=== PATIENT | female | born 1940 | race Caucasian/White ===

== ENCOUNTER 2017-05-18 11:43 | Inpatient (IN) | payer OTHER ==
[2017-05-18 11:59] VITALS: BMI 45.3
--- NOTE | 2017-05-18 13:04 | PDOC ---
History of Present Illness - General Chief Complaint: Blood Transfusion Stated Complaint: LAB VARIANCE (PCP SENT) Time Seen by Provider: 05/18/17 11:50 History Source: Patient Exam Limitations: No Limitations - History of Present Illness Initial Comments: 05/18/17 12:30 77-year-old female sent in from Dr. Arcos's office for evaluation of dyspnea on exertion along with continual low H&H over the past few weeks. Patient does have history of CHF and denies any chest pain, palpitations, fever, chills, bloody stool, bloody urine, or bruising. Patient also denies weight loss, change in appetite, change in medications, history of anemia, change in urine pattern, change in bowel pattern. Timing/Duration: reports: getting worse Severity: reports: moderate Modifying Factors: improves with: activity Associated Symptoms: reports: shortness of breath Past History - Past Medical History Allergies/Adverse Reactions: Allergies Allergy/AdvReac Type Severity Reaction Status Date / Time No Known Allergies Allergy Verified 05/18/17 12:00 Home Medications: Ambulatory Orders Amlodipine/Atorvastatin [Amlodipine-Atorvast 2.5-10 mg] 1 each PO BID 11/02/14 Aspirin [ASA -] 81 mg PO DAILY 11/02/14 Atorvastatin Ca [Lipitor] 20 mg PO HS 11/02/14 Carvedilol [Coreg -] 25 mg PO DAILY 11/02/14 Cholecalciferol (Vitamin D3) [Vitamin D3 -] 2,000 unit PO DAILY 11/02/14 Furosemide [Lasix -] 40 mg PO DAILY 11/02/14 Glipizide [Glipizide ER] 10 mg PO DAILY 11/02/14 Isosorbide Mononitrate [Imdur] 60 mg PO DAILY 11/02/14 Saxagliptin HCl/Metformin HCl [Kombiglyze Xr 2.5-1,000 mg Tab] 1 tab PO HS 11/02 Albuterol 2.5/Ipratropium 0.5 [Duoneb -] 1 neb NEB QIDR #0 vial 11/10/14 Alprazolam [Xanax] 0.5 mg PO Q6H PRN #0 tablet 11/10/14 Amlodipine Besylate [Norvasc -] 2.5 mg PO DAILY #0 tablet 11/10/14 Ramipril [Altace] 2.5 mg PO DAILY #0 capsule 11/10/14 Ranolazine [Ranexa -] 500 mg PO BID #0 tab 11/10/14 Sitagliptin Phosphate [Januvia -] 50 mg PO ACDIN #0 tablet 11/10/14 Acetaminophen [Tylenol] 650 mg PO DAILY PRN 05/18/17 Saxagliptin HCl/Metformin HCl [Kombiglyze Xr 2.5-1,000 mg Tab] 1 tab PO DAILY Asthma: Yes Cardiac Disorders: Yes ([place] X2, CAD) COPD: Yes Diabetes: Yes - Surgical History Cardiac Surgery: Yes ([facility]) Cholecystectomy: Yes - Psycho/Social/Smoking Cessation Hx Anxiety: Yes Suicidal Ideation: No Smoking History: Former smoker Have you smoked in the past 12 months: No If you are a former smoker, when did you quit?: 25 YEARS AGO Information on smoking cessation initiated: No Hx Alcohol Use: No Drug/Substance Use Hx: No Substance Use Type: None Patient Lives Alone: No Lives with/in: children Review of Systems - Review of Systems Constitutional: Yes: Weakness (mild). No: Loss of Appetite HEENTM: No: Symptoms Reported Respiratory: Yes: SOB with Exertion Cardiac (ROS): Yes: Edema ABD/GI: No: Symptoms Reported : No: Symptoms Reported Musculoskeletal: No: Symptoms Reported Integumentary: No: Symptoms Reported Neurological: Yes: Weakness (mild) Endocrine: No: Symptoms Reported Hematologic/Lymphatic: Yes: Anemia *Physical Exam - Vital Signs Last Vital Signs Temp Pulse Resp BP Pulse Ox 98 F 84 20 110/41 93 L 05/18/17 11:57 05/18/17 11:57 05/18/17 11:57 05/18/17 11:57 05/18/17 11:57 - Physical Exam General Appearance: Yes: Nourished, Appropriately Dressed. No: Apparent Distress HEENT: positive: EOMI, TREY, Pale Conjunctivae Neck: positive: Supple Respiratory/Chest: positive: Lungs Clear, Normal Breath Sounds. negative: Respiratory Distress, Accessory Muscle Use Cardiovascular: positive: Regular Rhythm, Regular Rate. negative: Murmur Gastrointestinal/Abdominal: positive: Soft. negative: Tenderness Rectal Exam: positive: heme negative stool Extremity: positive: Normal Capillary Refill, Pedal Edema (3+ pititng to BLE) Integumentary: positive: Normal Color, Dry, Warm Neurologic: positive: Motor Strength 5/5 (ambulatory) Heart Score/ECG Review - ECG Intrepretation Rhythm: Regular Rhythm (rate 76 with left axis deviation and left bundle branch block) ED Treatment Course - LABORATORY CBC & Chemistry Diagram: 05/18/17 12:52 05/18/17 12:52 - RADIOLOGY Radiology Studies Ordered: Category Date Time Status CHEST X-RAY PORTABLE* [RAD] Stat Radiology 05/18/17 12:51 Ordered Medical Decision Making - Medical Decision Making 05/18/17 12:35 Patient with low hematocrit and hemoglobin along with dyspnea on exertion. Patient was sent in by Dr. Arcos for admission and for evaluation of symptoms above. Patient ordered for type and screen, CBC, comp, urinalysis, stool for guaiac testing, cardiac monitoring, IV access and pulse oximetry. Patient will be admitted to [facility] under Dr. Arcos. 05/18/17 15:45 Laboratory Tests 05/18/17 05/18/17 05/18/17 12:52 12:52 12:52 WBC 11.2 H Hgb 7.0 L D Hct 24.1 L D MCH 19.5 L MCHC 29.2 L Plt Count 280 Neutrophils % 78.6 INR 1.09 Anion Gap BUN Creatinine Random Glucose Calcium Magnesium Total Bilirubin AST ALT B-Natriuretic Peptide Urine Ketones Negative Urine Blood Negative Urine Nitrite Negative Ur Leukocyte Esterase 2+ H Urine WBC 1 Stool Occult Blood Negative Blood Type 05/18/17 05/18/17 12:52 14:35 WBC Hgb Hct MCH MCHC Plt Count Neutrophils % INR Anion Gap 7 L BUN 26 H Creatinine 1.2 H Random Glucose 151 H D Calcium 8.7 Magnesium 2.4 D Total Bilirubin 0.4 D AST 16 ALT 13 D B-Natriuretic Peptide 122.95 Urine Ketones Urine Blood Urine Nitrite Ur Leukocyte Esterase Urine WBC Stool Occult Blood Blood Type O POSITIVE 05/18/17 15:45 Patient ordered for 1 unit of blood. Patient evaluate by Dr. Arcos. Patient admitted to [facility]. *DC/Admit/Observation/Transfer Diagnosis at time of Disposition: Dyspnea on exertion, Low hemoglobin - Discharge Dispostion Admit: Yes
[2017-05-18 13:09] LABS: MCHC 29.2 g/dl (32.0-36.0); MEAN CELL VOLUME 66.8 fl (80-96); MEAN PLT VOLUME 7.6 fl (7.5-11.1); PLATELET COUNT 280 K/MM3 (134-434); RDW 20.8 % (11.6-15.6); WHITE BLOOD COUNT 11.2 K/mm3 (4.0-10.0)
[2017-05-18 13:12] LABS: STOOL FOR OCCULT BLOOD NEGATIVE (NEGATIVE)
[2017-05-18 13:15] LABS: MCH 19.5 pg (25.7-33.7)
--- NOTE | 2017-05-18 13:16 | HP ---
Admitting History and Physical - Primary Care Physician PCP: Alexei Palomino - Admission Chief Complaint: SOB/WEAKNESS History of Present Illness: 77 WHITE FEMALE, GENERALLY NONCOMPLIANT WITH SUGGESTIONS FOR MAMMO/ COLONOSCOPIES ETC WAS SEEN IN OFFICE FOR SOB. LABS REVEALED AN IRON DEFICIENCY ANEMIA WITH HGB 7.3 PATIENT WAS EXTREMELY SOB AND HAD LOWER EXT EDEMA/ ORTHOPNEA AND DENIED CP,PALPS,FEVER,MELENA,BRPR,HEMATURIA AND SYNCOPE. 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 No: O2 Dependent Gastrointestinal: No: Ascites Hepatobiliary: No: Cirrhosis Renal/: No: Renal Failure Reproductive: Yes: Postmenopausal Heme/Onc: Yes: Anemia Infectious Disease: No: AIDS Psych: No: Addictions - Past Surgical History Past Surgical History: Yes: Cholecystectomy, Hysterectomy - Smoking History Smoking history: Former smoker Have you smoked in the past 12 months: No If you are a former smoker, when did you quit?: 25 YEARS AGO - Alcohol/Substance Use Hx Alcohol Use: No - Social History Usual Living Arrangement: Yes: With Spouse ADL: Family Assistance History of Recent Travel: No Home Medications - Allergies Allergies/Adverse Reactions: Allergies Allergy/AdvReac Type Severity Reaction Status Date / Time No Known Allergies Allergy Verified 05/18/17 12:00 - Home Medications Home Medications: Ambulatory Orders Amlodipine/Atorvastatin [Amlodipine-Atorvast 2.5-10 mg] 1 each PO BID 11/02/14 Aspirin [ASA -] 81 mg PO DAILY 11/02/14 Atorvastatin Ca [Lipitor] 20 mg PO HS 11/02/14 Carvedilol [Coreg -] 25 mg PO DAILY 11/02/14 Cholecalciferol (Vitamin D3) [Vitamin D3 -] 1,000 unit PO DAILY 11/02/14 Furosemide [Lasix -] 40 mg PO DAILY 11/02/14 Glipizide [Glipizide ER] 10 mg PO DAILY 11/02/14 Isosorbide Mononitrate [Imdur] 60 mg PO DAILY 11/02/14 Saxagliptin HCl/Metformin HCl [Kombiglyze Xr 2.5-1,000 mg Tab] 1 tab PO HS 11/02 Albuterol 2.5/Ipratropium 0.5 [Duoneb -] 1 neb NEB QIDR #0 vial 11/10/14 Alprazolam [Xanax] 0.5 mg PO Q6H PRN #0 tablet 11/10/14 Amlodipine Besylate [Norvasc -] 2.5 mg PO DAILY #0 tablet 11/10/14 Ramipril [Altace] 2.5 mg PO DAILY #0 capsule 11/10/14 Ranolazine [Ranexa -] 500 mg PO BID #0 tab 11/10/14 Sitagliptin Phosphate [Januvia -] 50 mg PO ACDIN #0 tablet 11/10/14 Family Disease History - Family Disease History Family History: Unremarkable Review of Systems - Review of Systems Constitutional: denies: Fever Eyes: denies: Blurred Vision HENT: denies: Difficult Swallowing Neck: denies: Decreased ROM Cardiovascular: denies: Chest Pain Respiratory: reports: Exercise Intolerance, SOB on Exertion. denies: Hemoptysis , Wheezing Gastrointestinal: denies: Abdominal Pain, Melena, Nausea Genitourinary: denies: Burning Breasts: reports: No Symptoms Reported Musculoskeletal: reports: No Symptoms Integumentary: reports: No Symptoms Neurological: reports: No Symptoms Endocrine: reports: No Symptoms Physical Examination Vital Signs: Vital Signs Temperature 98 F 05/18/17 11:57 Pulse Rate 84 05/18/17 11:57 Respiratory Rate 20 05/18/17 11:57 Blood Pressure 110/41 05/18/17 11:57 O2 Sat by Pulse Oximetry (%) 93 L 05/18/17 11:57 Constitutional: Yes: Calm Eyes: Yes: EOM Intact HENT: Yes: Normocephalic Neck: Yes: Trachea Midline Cardiovascular: Yes: Regular Rate and Rhythm, S1, S2 Respiratory: Yes: CTA Bilaterally Gastrointestinal: Yes: Normal Bowel Sounds, Abdomen, Obese Musculoskeletal: Yes: Back Pain Edema: Yes Edema: LLE: 2+, RLE: 2+ Imaging - Results Chest X-ray: Pending Problem List - Problems (1) Dyspnea on exertion Code(s): R06.09 - OTHER FORMS OF DYSPNEA (2) Low hemoglobin Code(s): D64.9 - ANEMIA, UNSPECIFIED (3) Arteriosclerotic heart disease (ASHD) Code(s): I25.10 - ATHSCL HEART DISEASE OF [place] CORONARY ARTERY W/O ANG PCTRS (4) CHF (congestive heart failure) Code(s): I50.9 - HEART FAILURE, UNSPECIFIED (5) Stented coronary artery Code(s): Z95.5 - PRESENCE OF CORONARY ANGIOPLASTY IMPLANT AND GRAFT (6) Diabetes mellitus Code(s): E11.9 - TYPE 2 DIABETES MELLITUS WITHOUT COMPLICATIONS (7) COPD (chronic obstructive pulmonary disease) Code(s): J44.9 - CHRONIC OBSTRUCTIVE PULMONARY DISEASE, UNSPECIFIED Assessment/Plan LIKELY ANEMIA DUE TO GI BLOOD LOSS H/O CAD S/P PCI STENT LVD/CHF DM HPL M. OBESITY LUNG NODULES NONCOMPLIANCE STOOL GUIAC TRANSFUSE PRBC TO MAINTAIN HGB 8 OR ABOVE CARDIO/GI EVAL WILL LIKELY NEED EGD/COLONOSCOPY CONTINUE GLYCEMIC CONTROL/CVS GELY PALOMINO MD
[2017-05-18 13:21] LABS: INR 1.09 (0.82-1.09)
[2017-05-18 13:28] LABS: URINE APPEARANCE CLEAR; URINE BILIRUBIN NEGATIVE (NEGATIVE); URINE BLOOD NEGATIVE (NEGATIVE); URINE COLOR COLORLESS; URINE GLUCOSE (UA) NEGATIVE (NEGATIVE); URINE KETONE NEGATIVE (NEGATIVE); URINE NITRITE NEGATIVE (NEGATIVE); URINE PROTEIN NEGATIVE (NEGATIVE); URINE UROBILINOGEN NEGATIVE mg/dL (0.2-1.0)
[2017-05-18] MEDS ORDERED: glipiZIDE-XL 10 MG TAB.ER.24 (FP) PO ONE (13:30)
[2017-05-18] MEDS ORDERED: CARVEDILOL 25 MG TABLET (FP) PO SCH (13:30)
[2017-05-18] MEDS ORDERED: ISOSORBIDE MONONITRATE 60 MG TAB.SR.24H (FP) PO SCH (13:30)
[2017-05-18] MEDS ORDERED: FUROSEMIDE 40 MG TABLET (FP) PO SCH (13:30)
[2017-05-18 13:31] LABS: ALBUMIN 3.3 g/dl (3.4-5.0); ANION GAP 7 (8-16); BILIRUBIN,TOTAL 0.4 mg/dL (0.2-1.0); CALCIUM 8.7 mg/dL (8.5-10.1); CO2 29 mmol/L (21-32); CREATININE 1.2 mg/dL (0.55-1.02); GLUCOSE,RANDOM 151 mg/dL (74-106); MAGNESIUM 2.4 mg/dL (1.8-2.4); SGOT/AST 16 U/L (15-37); SGPT/ALT 13 U/L (12-78); TOT PROT 6.4 g/dl (6.4-8.2)
[2017-05-18 13:34] LABS: ALK PHOS 108 U/L (45-117); URINE LEUK ESTERASE 2+ (NEGATIVE)
[2017-05-18 13:38] LABS: URINE BACTERIA RARE /hpf (NONE SEEN); URINE HYALINE CAST 12 /lpf; URINE MUCUS RARE; URINE RBC <1 /hpf (0-3); URINE WBC 1 /hpf (3-5)
[2017-05-18 13:52] LABS: NEUTROPHILS 78.6 % (42.8-82.8)
[2017-05-18 13:53] LABS: ANISOCYTOSIS 2+; HYPOCHROMIA 2+; MICROCYTOSIS 1+; PLATELET ESTIMATE ADEQUATE (NORMAL); POIKILOCYTOSIS 1+; POLYCHROMASIA 1+; TARGET CELLS 1+
[2017-05-18 13:54] LABS: OVALOCYTES 1+; STOMATOCYTE F
[2017-05-18] MEDS: glipiZIDE-XL 10 MG TAB.ER.24 (FP) PO SCH (14:49)
--- NOTE | 2017-05-18 15:40 | CON.GI ---
Consult Consult Specialty:: GI Referred by:: Dr. Arcos Reason for Consultation:: Anemia - History of Present Illness Chief Complaint: I have been short of breath and my legs are swelling History of Present Illness: 77F admitted through [facility] for evaluation SOB and worsening LE swelling. She states that this has been going on for about a month, worse over the last few days. In ER her Hgb was noted to be 7 and FOBT was negative. In review of [facility], Hgb was 11.9 11/05. It is unclear if she had had outpatient lab work more recent than that reflecting anemia. She denies chest pain, nausea, vomiting, dysphagia, odynophagia, change in bowel habits, rectal bleeding, melena. She has some left sided flank pain from time to time. She also describes chronic constipation. She has never had an upper endoscopy or colonoscopy and is hesitant to have them performed. There is no family history of colorectal cancer or other GI malignancy. She takes a 325mg aspirin as opposed to 81mg daily by her own doing "because it is good for strokes". She otherwise denies chronic NSAID use. 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 : [facility] History of Recent Travel: No Home Medications - Allergies Allergies/Adverse Reactions: Allergies Allergy/AdvReac Type Severity Reaction Status Date / Time No Known Allergies Allergy Verified 05/18/17 12:00 - Home Medications Home Medications: Ambulatory Orders Amlodipine/Atorvastatin [Amlodipine-Atorvast 2.5-10 mg] 1 each PO BID 11/02/14 Aspirin [ASA -] 81 mg PO DAILY 11/02/14 Atorvastatin Ca [Lipitor] 20 mg PO HS 11/02/14 Carvedilol [Coreg -] 25 mg PO DAILY 11/02/14 Cholecalciferol (Vitamin D3) [Vitamin D3 -] 2,000 unit PO DAILY 11/02/14 Furosemide [Lasix -] 40 mg PO DAILY 11/02/14 Glipizide [Glipizide ER] 10 mg PO DAILY 11/02/14 Isosorbide Mononitrate [Imdur] 60 mg PO DAILY 11/02/14 Saxagliptin HCl/Metformin HCl [Kombiglyze Xr 2.5-1,000 mg Tab] 1 tab PO HS 11/02 Albuterol 2.5/Ipratropium 0.5 [Duoneb -] 1 neb NEB QIDR #0 vial 11/10/14 Alprazolam [Xanax] 0.5 mg PO Q6H PRN #0 tablet 11/10/14 Amlodipine Besylate [Norvasc -] 2.5 mg PO DAILY #0 tablet 11/10/14 Ramipril [Altace] 2.5 mg PO DAILY #0 capsule 11/10/14 Ranolazine [Ranexa -] 500 mg PO BID #0 tab 11/10/14 Sitagliptin Phosphate [Januvia -] 50 mg PO ACDIN #0 tablet 11/10/14 Acetaminophen [Tylenol] 650 mg PO DAILY PRN 05/18/17 Saxagliptin HCl/Metformin HCl [Kombiglyze Xr 2.5-1,000 mg Tab] 1 tab PO DAILY Family Disease History - Family Disease History Family Disease History: Other: Father ( 57: blood clot), Mother ( 83: internal bleeding), Brother (1 47: DM II / [place], 1 64: CHF, 1 76 metastatic prostate cancer) Other Family History: 4 healthy children. No family history of colorectal cancer Review of Systems - Review of Systems Constitutional: denies: Fever, Unintentional Wgt. Loss Cardiovascular: reports: Edema, Shortness of Breath (chronic, worse of late, worse when laying down), Other (orthopnea). denies: Chest Pain, Palpitations Gastrointestinal: reports: Constipation. denies: Abdominal Pain, Bloating, Diarrhea, Dysphagia, Indigestion, Melena, Nausea, Rectal Bleeding, Vomiting, Vomiting Blood Genitourinary: denies: Discharge Physical Exam-GI Vital Signs: Vital Signs Temperature 98 F 05/18/17 1530 Pulse Rate 80 05/18/17 1530 Respiratory Rate 20 05/18/17 1530 Blood Pressure 110/43 05/18/17 1530 O2 Sat by Pulse Oximetry (%) 93 L (86% laying flat) on RA 05/18/17 1530 Constitutional: Yes: Calm Eyes: No: Sclera Icterus Cardiovascular: Yes: Regular Rate and Rhythm, Murmur (2/6 systolic murmur at thr RSB) Respiratory: Yes: Diminished (at bases) Gastrointestinal Inspection: Yes: Scars (long oblique RUQ scar, + vertical pelvic scar) ...Auscultate: Yes: Normoactive Bowel Sounds ...Palpate: Yes: Tenderness (Mild tenderness LUQ) ...Percussion: No: Tympanitic ...Rectal Exam: Yes: Other (+ external skin tags, redness at the presacral area , no masses, light brown stool guaiac negative) Edema: Yes Edema: LLE: 2+ (pitting), RLE: 2+ (pitting) Neurological: Yes: Alert, Oriented Labs: INR, PTT INR 1.09 (0.82-1.09) 05/18/17 12:52 CBC, BMP 05/18/17 12:52 05/18/17 12:52 Hepatic Panel Total Bilirubin 0.4 mg/dL (0.2-1.0) D 05/18/17 12:52 AST 16 U/L (15-37) 05/18/17 12:52 ALT 13 U/L (12-78) D 05/18/17 12:52 Alkaline Phosphatase 108 U/L (45-117) D 05/18/17 12:52 Albumin 3.3 g/dl (3.4-5.0) L 05/18/17 12:52 Imaging - Results Cat Scan: Report Reviewed (multiple bilateral lung nodules) Problem List - Problems (1) Microcytic anemia Assessment/Plan: Hemodynamically stable without history overt GI bleeding / guaiac negative x 2 currently Discussed finding with Ms. Nickerson, her and her daughter who were present at bedside. I explained that to exclude GI causes of her anemia such as bleeding blood vessels, PUD, polyps or cancers of the GI tract such as colon cancer, EGD and colonoscopy can be performed. We discussed potential risks of the procedure like but not limited to bleeding, perforation requiring surgery to repair, infection and sedation medication effects all of which copuld be potentially life threatening. I explained to her and her family that her comrbidities do put her at a highrer risk when compared to a younger, healthier individual. She would like to think about these options and I asked that she discuss things with her family. For Now I advised: 1. Checking Iron studies: added on to labs already drawn. Consider heme evaluation 2. Cardiology evaluation for evaluation of worsening SOB / LE Swelling, heart murmur / orthopnea 3. Pulm shashi w/ Dr. Arcos. Patient w/ O2 saturation 85% while laying flat. Ordered repeat CT scan of chest given the findings of multiple lung nodules on previous study 4. If Ms. Nickerson is amenable to endoscopic evaluations, please call us so that bowel preparation can be arranged. She will need cardiopulmonary clearance prior to procedures. Thank you for this consultative opportunity, Alex Parker D.O. Code(s): D50.9 - IRON DEFICIENCY ANEMIA, UNSPECIFIED
--- NOTE | 2017-05-18 17:26 | CON.CARD ---
Consult Consult Specialty:: Cardiology Referred by:: Alexei Arcos MD Reason for Consultation:: Dyspnea, anemia - History of Present Illness Chief Complaint: Dyspnea, LE edema History of Present Illness: cc: I have been short of breath and my legs are swelling History of Present Illness: 77F with h/o HTN, chol. CAD s/p multivessel PCI (stent), angina pectoris, diastolic dysfunction, type 2 DM, obesity and COPD last seen in office 03/30/2017 presented for evaluation or progressive exertional SOB with fatigue, orthopnea and worsening LE swelling over a month, worse over the last few days. In ER, her Hgb was noted to be 7 and FOBT was negative. In [facility] of [facility], Hgb was 11.9 11/05. She denies chest pain, near or true syncope, palpitations or PND. 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 Home Medications - Allergies Allergies/Adverse Reactions: Allergies Allergy/AdvReac Type Severity Reaction Status Date / Time No Known Allergies Allergy Verified 05/18/17 12:00 - Home Medications Home Medications: Ambulatory Orders Amlodipine/Atorvastatin [Amlodipine-Atorvast 2.5-10 mg] 1 each PO BID 11/02/14 Aspirin [ASA -] 81 mg PO DAILY 11/02/14 Atorvastatin Ca [Lipitor] 20 mg PO HS 11/02/14 Carvedilol [Coreg -] 25 mg PO BID 11/02/14 Cholecalciferol (Vitamin D3) [Vitamin D3 -] 2,000 unit PO DAILY 11/02/14 Furosemide [Lasix -] 40 mg PO DAILY 11/02/14 Glipizide [Glipizide ER] 10 mg PO DAILY 11/02/14 Isosorbide Mononitrate [Imdur] 60 mg PO DAILY 11/02/14 Albuterol 2.5/Ipratropium 0.5 [Duoneb -] 1 neb NEB QIDR #0 vial 11/10/14 Alprazolam [Xanax] 0.5 mg PO Q6H PRN #0 tablet 11/10/14 Acetaminophen/Diphenhydramine [Tylenol Pm Ex-Strength Caplet] 2 tab PO HS Saxagliptin HCl/Metformin HCl [Kombiglyze Xr 2.5-1,000 mg Tab] 1 tab PO DAILY Family Disease History - Family Disease History Family Disease History: Other: Father ( 57: blood clot), Mother ( 83: internal bleeding), Brother (1 47: DM II / [place], 1 64: CHF, 1 76 metastatic prostate cancer) Other Family History: 4 healthy children. No family history of colorectal cancer Review of Systems - Review of Systems Cardiovascular: reports: Edema Respiratory: reports: Exercise Intolerance, Orthopnea, SOB on Exertion Vital Signs: Vital Signs Temperature 98 F 05/18/17 11:57 Pulse Rate 77 05/18/17 15:50 Respiratory Rate 18 05/18/17 15:50 Blood Pressure 106/44 05/18/17 15:50 O2 Sat by Pulse Oximetry (%) 93 L 05/18/17 15:50 Constitutional: Yes: No Distress, Calm Neck: Yes: Supple Respiratory: Yes: Regular, Diminished Gastrointestinal: Yes: Normal Bowel Sounds, Soft, Abdomen, Obese Cardiovascular: Yes: Regular Rate and Rhythm JVD: No Carotid Bruit: No Heart Sounds: Yes: S1, S2 Edema: Yes Edema: LLE: 2+, RLE: 2+ - Other Data Labs, Other Data: INR, PTT INR 1.09 (0.82-1.09) 05/18/17 12:52 NSR LBBB similar to previous Prior Cardiac Procedures: PTCA with Stent Ejection Fraction %: LVEF > or = 40 % Problem List - Problems (1) Arteriosclerotic heart disease (ASHD) Code(s): I25.10 - ATHSCL HEART DISEASE OF [place] CORONARY ARTERY W/O ANG PCTRS (2) Diabetes mellitus Code(s): E11.9 - TYPE 2 DIABETES MELLITUS WITHOUT COMPLICATIONS Qualifiers: Diabetes mellitus type: type 2 (3) Dyspnea on exertion Code(s): R06.09 - OTHER FORMS OF DYSPNEA (4) Microcytic anemia Code(s): D50.9 - IRON DEFICIENCY ANEMIA, UNSPECIFIED (5) Stented coronary artery Code(s): Z95.5 - PRESENCE OF CORONARY ANGIOPLASTY IMPLANT AND GRAFT (6) Diastolic dysfunction Code(s): I51.9 - HEART DISEASE, UNSPECIFIED (7) COPD (chronic obstructive pulmonary disease) Code(s): J44.9 - CHRONIC OBSTRUCTIVE PULMONARY DISEASE, UNSPECIFIED (8) Hyperlipidemia associated with type 2 diabetes mellitus Code(s): E11.69 - TYPE 2 DIABETES MELLITUS WITH OTHER SPECIFIED COMPLICATION E78.5 - HYPERLIPIDEMIA, UNSPECIFIED (9) Pulmonary nodules Code(s): R91.8 - OTHER NONSPECIFIC ABNORMAL FINDING OF LUNG FIELD Assessment/Plan 04/06/2016 Echo: Normal LV size and fxn, mild MR, TR, [place] 1. Anemia due to chronic GI blood loss 2. LV diastolic dysfunction 3. CAD s/p DE PCI (stent), angina pectoris 4. Acute on CKD due to above 5. HTN/DM/hypercholesterolemia 6. COPD, Pulmonary nodules 1. Transfuse pRBC to maintain Hgb 8.0 with Lasix afterwards 2. Hold ASA for now, continue Amlodipine Besylate (Norvasc -) 2.5 mg PO DAILY, Atorvastatin Calcium (Lipitor -) 20 mg PO HS, Carvedilol (Coreg -) 25 mg PO BID, Furosemide (Lasix -) 40 mg PO DAILY, and Isosorbide Mononitrate (Imdur -) 60 mg PO DAILY Resume Ramipril (Altace -) 2.5 mg PO DAILY once renal function stabilizes 3. BD, O2, repeat chest CT to follow-up bilateral pulmonary nodules, f/u repeat echo, compression therapy with AMANDA wraps 4. Plan for EGD/colonoscopy once euvolemic 5. Thank you for consultative opportunity
[2017-05-18] MEDS ORDERED: FUROSEMIDE 40 MG/4 ML INJECTABLE VIAL IVPB ONE (18:00)
[2017-05-18] MEDS ORDERED: ALPRAZolam 0.25 MG TABLET PO PRN (19:02)
[2017-05-18] MEDS: ATORVASTATIN CA 10 MG TABLET (FP) PO SCH (21:58)
[2017-05-18] MEDS: CARVEDILOL 25 MG TABLET (FP) PO SCH (21:58)
[2017-05-18] MEDS: diphenhydrAMINE HCL 25 MG CAPSULE (FP) PO SCH (23:26)
[2017-05-19] MEDS ORDERED: FUROSEMIDE 40 MG/4 ML INJECTABLE VIAL IVPUSH ONE (01:45)
[2017-05-19 09:27] LABS: FERRITIN 10.155 ng/ml (6.9-282.5)
[2017-05-19] MEDS: FUROSEMIDE 40 MG TABLET (FP) PO SCH (11:24)
[2017-05-19] MEDS: CARVEDILOL 25 MG TABLET (FP) PO SCH ×2 (11:24→21:33)
[2017-05-19] MEDS: ISOSORBIDE MONONITRATE 60 MG TAB.SR.24H (FP) PO SCH (11:24)
[2017-05-19] MEDS: amLODIPine BESYLATE 2.5 MG TABLET (FP) PO SCH (11:24)
--- NOTE | 2017-05-19 11:31 | PN ---
Progress Note (short form) - Note Progress Note: MEDICAL OOB TO CHAIR VSS/AFEBRILE ANICTERIC DISTANT BUT CLEAR BREATH SOUNDS S1S2 BS+ OBESE LESS EDEMA LABS/MEDS/CONSULTS/NOTES REVIEWED CT CHEST REVIEWED/AWAIT OFFICIAL REPORT LIKELY ANEMIA DUE TO GI BLOOD LOSS H/O CAD S/P PCI STENT LVD/CHF DM HPL M. OBESITY LUNG NODULES NONCOMPLIANCE TRANSFUSED PRBC TO MAINTAIN HGB 8 OR ABOVE/REPEAT CBC PENDING CARDIO/GI EVAL APPRECIATED WILL LIKELY NEED EGD/COLONOSCOPY WHEN CLINICALLY STABLE CONTINUE GLYCEMIC CONTROL/[facility] [place] Problem List - Problems (1) Dyspnea on exertion Code(s): R06.09 - OTHER FORMS OF DYSPNEA (2) Low hemoglobin Code(s): D64.9 - ANEMIA, UNSPECIFIED (3) Arteriosclerotic heart disease (ASHD) Code(s): I25.10 - ATHSCL HEART DISEASE OF [place] CORONARY ARTERY W/O ANG PCTRS (4) CHF (congestive heart failure) Code(s): I50.9 - HEART FAILURE, UNSPECIFIED (5) Stented coronary artery Code(s): Z95.5 - PRESENCE OF CORONARY ANGIOPLASTY IMPLANT AND GRAFT (6) Diabetes mellitus Code(s): E11.9 - TYPE 2 DIABETES MELLITUS WITHOUT COMPLICATIONS Qualifiers: Diabetes mellitus type: type 2 (7) COPD (chronic obstructive pulmonary disease) Code(s): J44.9 - CHRONIC OBSTRUCTIVE PULMONARY DISEASE, UNSPECIFIED
[2017-05-19 11:39] LABS: MCH 20.2 pg (25.7-33.7); MCHC 29.9 g/dl (32.0-36.0); MEAN CELL VOLUME 67.7 fl (80-96); MEAN PLT VOLUME 7.1 fl (7.5-11.1); PLATELET COUNT 318 K/MM3 (134-434); RDW 21.3 % (11.6-15.6)
[2017-05-19 13:09] LABS: OVALOCYTES FEW
[2017-05-19 13:12] LABS: ANISOCYTOSIS 1+; HYPOCHROMIA 3+; MICROCYTOSIS 1+; POLYCHROMASIA 1+; TEAR DROP CELLS FEW
[2017-05-19 13:13] LABS: ACANTHOCYTES 1+
[2017-05-19] MEDS: glipiZIDE-XL 10 MG TAB.ER.24 (FP) PO SCH (13:16)
--- NOTE | 2017-05-19 14:41 | PN ---
Progress Note, Physician Chief Complaint: Events noted Intermittent dyspnea, appear comfortable History of Present Illness: Patient was seen and examined. Awake and alert. Chart was reviewed Denies chest pain or palpitations. Intermittent dyspnea, improving - Current Medication List Current Medications: Active Medications Alprazolam (Xanax -) 0.5 mg PO BID PRN Amlodipine Besylate (Norvasc -) 2.5 mg PO DAILY [facility] Last Admin: 05/19/17 11:24 Dose: 2.5 mg Atorvastatin Calcium (Lipitor -) 10 mg PO HS [facility] Last Admin: 05/18/17 21:58 Dose: 10 mg Carvedilol (Coreg -) 25 mg PO BID [facility] Last Admin: 05/19/17 11:24 Dose: 25 mg Diphenhydramine HCl (Benadryl -) 50 mg PO HS [facility] Last Admin: 05/18/17 23:26 Dose: Not Given Furosemide (Lasix -) 40 mg PO DAILY [facility] Last Admin: 05/19/17 11:24 Dose: 40 mg Glipizide (Glucotrol Xl -) 10 mg PO ONCE [facility] Last Admin: 05/19/17 13:16 Dose: Not Given Isosorbide Mononitrate (Imdur -) 60 mg PO DAILY [facility] Last Admin: 05/19/17 11:24 Dose: 60 mg - Objective Vital Signs: Vital Signs Temperature 98.0 F 05/19/17 09:29 Pulse Rate 73 05/19/17 09:29 Respiratory Rate 18 05/19/17 09:29 Blood Pressure 124/53 05/19/17 09:29 O2 Sat by Pulse Oximetry (%) 96 05/19/17 10:00 Neck: Yes: Supple Cardiovascular: Yes: Regular Rate and Rhythm, S1, S2 Respiratory: Yes: Diminished Gastrointestinal: Yes: Normal Bowel Sounds, Soft. No: Tenderness Edema: Yes Edema: LLE: 2+, RLE: 2+ Additional Findings/Remarks: - Review of Systems Constitutional: denies: Chills, Fever Cardiovascular: denies: Chest Pain. denies: Palpitations, (+) Shortness of Breath Respiratory: denies: Cough, Hemoptysis, Orthopnea, PND, SOB, SOB on Exertion Gastrointestinal: denies: Nausea, Vomiting. denies: Abdominal Pain, Constipation, Diarrhea, Melena, Rectal Bleeding Neurological: denies: Dizziness, Headache, Seizure, Syncope Labs: CBC, BMP 05/19/17 11:15 INR, PTT INR 1.09 (0.82-1.09) 05/18/17 12:52 Problem List - Problems (1) Arteriosclerotic heart disease (ASHD) Code(s): I25.10 - ATHSCL HEART DISEASE OF [place] CORONARY ARTERY W/O ANG PCTRS (2) CHF (congestive heart failure) Code(s): I50.9 - HEART FAILURE, UNSPECIFIED (3) COPD (chronic obstructive pulmonary disease) Code(s): J44.9 - CHRONIC OBSTRUCTIVE PULMONARY DISEASE, UNSPECIFIED (4) Diabetes mellitus Code(s): E11.9 - TYPE 2 DIABETES MELLITUS WITHOUT COMPLICATIONS Qualifiers: Diabetes mellitus type: type 2 (5) Diastolic dysfunction Code(s): I51.9 - HEART DISEASE, UNSPECIFIED (6) Hyperlipidemia associated with type 2 diabetes mellitus Code(s): E11.69 - TYPE 2 DIABETES MELLITUS WITH OTHER SPECIFIED COMPLICATION E78.5 - HYPERLIPIDEMIA, UNSPECIFIED (7) Low hemoglobin Code(s): D64.9 - ANEMIA, UNSPECIFIED (8) Pulmonary nodules Code(s): R91.8 - OTHER NONSPECIFIC ABNORMAL FINDING OF LUNG FIELD (9) Stented coronary artery Code(s): Z95.5 - PRESENCE OF CORONARY ANGIOPLASTY IMPLANT AND GRAFT Assessment/Plan 1. Anemia due to chronic GI blood loss 2. LV diastolic dysfunction 3. CAD s/p [place] PCI (stent), angina pectoris 4. Acute on CKD due to above 5. HTN 6. DM 7. Hypercholesterolemia 8. COPD and Pulmonary nodules PLAN: 1. Transfuse PRBC to maintain Hgb 8.0 with Lasix rory - monitor H/H 2. Hold ASA for now. Continue Amlodipine, Atorvastatin, Carvedilol, Furosemide and Isosorbide Mononitrate. Resume Ramipril once renal function stabilizes 3. Bronchodilator and O2 4. Plan for EGD/colonoscopy once euvolemic. No absolute contraindication in proceeding with GI work up in view of absence of ischemic symptoms, decompensated congestive heart failure or malignant arrhythmia. 5. Chest CT 6. Transthoracic echocardiography to assess LV/RV and valvular function. Further plans are to follow Varghese Vaughan MD
[2017-05-19] MEDS: diphenhydrAMINE HCL 25 MG CAPSULE (FP) PO SCH (21:32)
[2017-05-19] MEDS: ATORVASTATIN CA 10 MG TABLET (FP) PO SCH (21:32)
[2017-05-20 06:36] LABS: SERUM IRON 23 ug/dL (27-139); TOTAL IRON BINDING CAPACITY 415 ug/dL (250-450); UIBC 392 ug/dL (118-369)
[2017-05-20] MEDS: DOCUSATE SODIUM 100 MG CAPSULE (FP) PO SCH ×2 (10:14→22:00)
[2017-05-20] MEDS: CARVEDILOL 25 MG TABLET (FP) PO SCH ×2 (10:14→22:00)
[2017-05-20] MEDS: ISOSORBIDE MONONITRATE 60 MG TAB.SR.24H (FP) PO SCH (10:14)
[2017-05-20] MEDS: amLODIPine BESYLATE 2.5 MG TABLET (FP) PO SCH (10:14)
[2017-05-20] MEDS: FUROSEMIDE 40 MG TABLET (FP) PO SCH (10:14)
--- NOTE | 2017-05-20 11:48 | PN ---
Progress Note (short form) - Note Progress Note: MEDICAL OOB TO CHAIR VSS/AFEBRILE ANICTERIC DISTANT BUT CLEAR BREATH SOUNDS S1S2 BS+ OBESE LESS EDEMA LABS/MEDS/CONSULTS/NOTES REVIEWED HGB 8.[address] CHEST REVIEWED/NO EVIDENCE OF NODULES LIKELY ANEMIA DUE TO GI BLOOD LOSS H/O CAD S/P PCI STENT LVD/CHF DM HPL M. OBESITY LUNG NODULES NONCOMPLIANCE HGB IMPROVED CARDIO/GI EVAL APPRECIATED WILL LIKELY NEED EGD/COLONOSCOPY CONTINUE GLYCEMIC CONTROL/[facility] FROM PULMONARY [facility] FOR ENDOSCOPIC/COLONOSCOPIC EVALUATIONS Regan PALOMINO MD Problem List - Problems (1) Dyspnea on exertion Code(s): R06.09 - OTHER FORMS OF DYSPNEA (2) Low hemoglobin Code(s): D64.9 - ANEMIA, UNSPECIFIED (3) Arteriosclerotic heart disease (ASHD) Code(s): I25.10 - ATHSCL HEART DISEASE OF [place] CORONARY ARTERY W/O ANG PCTRS (4) CHF (congestive heart failure) Code(s): I50.9 - HEART FAILURE, UNSPECIFIED (5) Stented coronary artery Code(s): Z95.5 - PRESENCE OF CORONARY ANGIOPLASTY IMPLANT AND GRAFT (6) Diabetes mellitus Code(s): E11.9 - TYPE 2 DIABETES MELLITUS WITHOUT COMPLICATIONS Qualifiers: Diabetes mellitus type: type 2 (7) COPD (chronic obstructive pulmonary disease) Code(s): J44.9 - CHRONIC OBSTRUCTIVE PULMONARY DISEASE, UNSPECIFIED
--- NOTE | 2017-05-20 15:15 | PN ---
Progress Note, Physician Chief Complaint: Events noted Remains comfortable History of Present Illness: Patient was seen and examined. Awake and alert. Chart was reviewed Denies chest pain or palpitations. Intermittent dyspnea, improving Await EGD/colonoscopy - Current Medication List Current Medications: Active Medications Alprazolam (Xanax -) 0.5 mg PO BID PRN Amlodipine Besylate (Norvasc -) 2.5 mg PO DAILY [facility] Last Admin: 05/20/17 10:14 Dose: 2.5 mg Atorvastatin Calcium (Lipitor -) 10 mg PO HS [facility] Last Admin: 05/19/17 21:32 Dose: 10 mg Carvedilol (Coreg -) 25 mg PO BID [facility] Last Admin: 05/20/17 10:14 Dose: 25 mg Diphenhydramine HCl (Benadryl -) 50 mg PO HS [facility] Last Admin: 05/19/17 21:32 Dose: 50 mg Docusate Sodium (Colace -) 100 mg PO BID [facility] Last Admin: 05/20/17 10:14 Dose: 100 mg Furosemide (Lasix -) 40 mg PO DAILY [facility] Last Admin: 05/20/17 10:14 Dose: 40 mg Isosorbide Mononitrate (Imdur -) 60 mg PO DAILY [facility] Last Admin: 05/20/17 10:14 Dose: 60 mg - Objective Vital Signs: Vital Signs Temperature 98.5 F 05/20/17 08:43 Pulse Rate 82 05/20/17 08:43 Respiratory Rate 18 05/20/17 08:43 Blood Pressure 129/47 05/20/17 08:43 O2 Sat by Pulse Oximetry (%) 94 L 05/20/17 08:46 Neck: Yes: Supple Cardiovascular: Yes: Regular Rate and Rhythm, S1, S2 Respiratory: Yes: Diminished Gastrointestinal: Yes: Normal Bowel Sounds, Soft, Abdomen, Obese. No: Tenderness Edema: Yes Edema: LLE: 2+, RLE: 2+ Wound/Incision: Yes: Dressing Dry and Intact Additional Findings/Remarks: - Review of Systems Constitutional: denies: Chills, Fever Cardiovascular: denies: Chest Pain. denies: Palpitations, (+) Shortness of Breath Respiratory: denies: Cough, Hemoptysis, Orthopnea, PND, (+) SOB, SOB on Exertion Gastrointestinal: denies: Nausea, Vomiting. denies: Abdominal Pain, Constipation, Diarrhea, Melena, Rectal Bleeding Neurological: denies: Dizziness, Headache, Seizure, Syncope Labs: - Review of Systems Constitutional: denies: Chills, Fever Cardiovascular: denies: Chest Pain. denies: Palpitations, (+) Shortness of Breath Respiratory: denies: Cough, Hemoptysis, Orthopnea, PND, SOB, SOB on Exertion Gastrointestinal: denies: Nausea, Vomiting. denies: Abdominal Pain, Constipation, Diarrhea, Melena, Rectal Bleeding Neurological: denies: Dizziness, Headache, Seizure, Syncope Problem List - Problems (1) Arteriosclerotic heart disease (ASHD) Code(s): I25.10 - ATHSCL HEART DISEASE OF [place] CORONARY ARTERY W/O ANG PCTRS (2) CHF (congestive heart failure) Code(s): I50.9 - HEART FAILURE, UNSPECIFIED Qualifiers: Congestive heart failure type: diastolic Congestive heart failure chronicity: acute on chronic Qualified Code(s): I50.33 - Acute on chronic diastolic (congestive) heart failure (3) COPD (chronic obstructive pulmonary disease) Code(s): J44.9 - CHRONIC OBSTRUCTIVE PULMONARY DISEASE, UNSPECIFIED Qualifiers : COPD type: unspecified COPD Qualified Code(s): J44.9 - Chronic obstructive pulmonary disease, unspecified (4) Diabetes mellitus Code(s): E11.9 - TYPE 2 DIABETES MELLITUS WITHOUT COMPLICATIONS Qualifiers: Diabetes mellitus type: type 2 Diabetes mellitus complication status: without complication Diabetes mellitus terminal worker insulin use: without terminal worker use Qualified Code(s): E11.9 - Type 2 diabetes mellitus without complications (5) Diastolic dysfunction Code(s): I51.9 - HEART DISEASE, UNSPECIFIED (6) Hyperlipidemia associated with type 2 diabetes mellitus Code(s): E11.69 - TYPE 2 DIABETES MELLITUS WITH OTHER SPECIFIED COMPLICATION E78.5 - HYPERLIPIDEMIA, UNSPECIFIED (7) Low hemoglobin Code(s): D64.9 - ANEMIA, UNSPECIFIED (8) Pulmonary nodules Code(s): R91.8 - OTHER NONSPECIFIC ABNORMAL FINDING OF LUNG FIELD (9) Stented coronary artery Code(s): Z95.5 - PRESENCE OF CORONARY ANGIOPLASTY IMPLANT AND GRAFT Assessment/Plan 1. Anemia due to chronic GI blood loss 2. LV diastolic dysfunction 3. CAD s/p [place] PCI (stent), angina pectoris 4. Acute on CKD due to above 5. HTN 6. DM 7. Hypercholesterolemia 8. COPD and Pulmonary nodules PLAN: 1. Transfuse PRBC to maintain Hgb 8.0 with Lasix rory - monitor H/H 2. ASA held. Continue Amlodipine, Atorvastatin, Carvedilol, Furosemide and Isosorbide Mononitrate. Resume Ramipril once renal function stabilizes 3. Bronchodilator and O2 4. Plan for EGD/colonoscopy once euvolemic, tentatively tomorrow. No absolute contraindication in proceeding with GI work up in view of absence of ischemic symptoms, decompensated congestive heart failure or malignant arrhythmia. 5. Chest CT noted 6. Transthoracic echocardiography to assess LV/RV and valvular function. Further plans are to follow Varghese Vaughan MD
[2017-05-20] MEDS: ATORVASTATIN CA 10 MG TABLET (FP) PO SCH (22:00)
[2017-05-20] MEDS: diphenhydrAMINE HCL 25 MG CAPSULE (FP) PO SCH (22:00)
[2017-05-21 07:11] LABS: BASOPHIL 0.6 % (0-2.0); EOSINOPHIL 3.6 % (0-4.5); MCHC 31.3 g/dl (32.0-36.0); MEAN CELL VOLUME 67.2 fl (80-96); MEAN PLT VOLUME 7.1 fl (7.5-11.1); NEUTROPHILS 58.7 % (42.8-82.8); PLATELET COUNT 281 K/MM3 (134-434); RDW 21.6 % (11.6-15.6); WHITE BLOOD COUNT 8.2 K/mm3 (4.0-10.0)
[2017-05-21 07:20] LABS: INR 1.17 (0.82-1.09); PROTHROMBIN TIME (PATIENT) 12.9 SEC (9.98-11.88)
[2017-05-21 07:35] LABS: ANION GAP 8 (8-16); CALCIUM 8.7 mg/dL (8.5-10.1); CO2 32 mmol/L (21-32); CREATININE 0.9 mg/dL (0.55-1.02); GLUCOSE,RANDOM 101 mg/dL (74-106)
[2017-05-21] MEDS ORDERED: PEG3350/SOD SULF,BICARB,CL/KCL 4,000 ML SOLN.RECON PO ONE (07:55)
[2017-05-21] MEDS: ISOSORBIDE MONONITRATE 60 MG TAB.SR.24H (FP) PO SCH (09:38)
[2017-05-21] MEDS: CARVEDILOL 25 MG TABLET (FP) PO SCH ×2 (09:38→22:51)
[2017-05-21] MEDS: amLODIPine BESYLATE 2.5 MG TABLET (FP) PO SCH (09:38)
[2017-05-21] MEDS: FUROSEMIDE 40 MG TABLET (FP) PO SCH (09:38)
--- NOTE | 2017-05-21 09:54 | EKG ---
Test Reason : Blood Pressure : / mmHG Vent. Rate : 076 BPM Atrial Rate : 076 BPM P-R Int : 164 ms QRS Dur : 134 ms QT Int : 430 ms P-R-T Axes : 056 -35 078 degrees QTc Int : 483 ms NORMAL SINUS RHYTHM LEFT AXIS DEVIATION LEFT BUNDLE BRANCH BLOCK ABNORMAL ECG WHEN COMPARED WITH ECG OF 02-NOV-2014 18:46, T WAVE VARIATION Confirmed by KELLY BARAJAS MD ([id number]) on 05/21/2017 9:54:22 AM Referred By: Confirmed By:KELLY BARAJAS MD
--- NOTE | 2017-05-21 12:08 | PN ---
Progress Note, Physician History of Present Illness: LE edema improving with diuresis and wraps. Await endoscopy. - Current Medication List Current Medications: Active Medications Alprazolam (Xanax -) 0.5 mg PO BID PRN Amlodipine Besylate (Norvasc -) 2.5 mg PO DAILY [facility] Last Admin: 05/21/17 09:38 Dose: 2.5 mg Atorvastatin Calcium (Lipitor -) 10 mg PO HS [facility] Last Admin: 05/20/17 22:00 Dose: 10 mg Bisacodyl (Dulcolax -) 20 mg PO ONCE ONE Stop: 05/21/17 19:01 Carvedilol (Coreg -) 25 mg PO BID [facility] Last Admin: 05/21/17 09:38 Dose: 25 mg Diphenhydramine HCl (Benadryl -) 50 mg PO HS [facility] Last Admin: 05/20/17 22:00 Dose: 50 mg Furosemide (Lasix -) 40 mg PO DAILY [facility] Last Admin: 05/21/17 09:38 Dose: 40 mg Isosorbide Mononitrate (Imdur -) 60 mg PO DAILY [facility] Last Admin: 05/21/17 09:38 Dose: 60 mg - Objective Vital Signs: Vital Signs Temperature 98.6 F 05/21/17 06:00 Pulse Rate 78 05/21/17 06:00 Respiratory Rate 22 05/21/17 06:00 Blood Pressure 121/58 05/21/17 06:00 O2 Sat by Pulse Oximetry (%) 94 L 05/20/17 21:00 Constitutional: Yes: No Distress, Calm Neck: Yes: Supple Cardiovascular: Yes: Regular Rate and Rhythm Respiratory: Yes: Regular, Diminished Gastrointestinal: Yes: Normal Bowel Sounds, Soft Edema: Yes Edema: LLE: Trace, RLE: Trace Labs: CBC, BMP 05/21/17 06:00 05/21/17 06:00 INR, PTT INR 1.17 (0.82-1.09) H 05/21/17 06:00 Problem List - Problems (1) Arteriosclerotic heart disease (ASHD) Code(s): I25.10 - ATHSCL HEART DISEASE OF [place] CORONARY ARTERY W/O ANG PCTRS (2) Diabetes mellitus Code(s): E11.9 - TYPE 2 DIABETES MELLITUS WITHOUT COMPLICATIONS Qualifiers: Diabetes mellitus type: type 2 Diabetes mellitus complication status: without complication Diabetes mellitus long-term insulin use: without intermediate designer use Qualified Code(s): E11.9 - Type 2 diabetes mellitus without complications (3) Dyspnea on exertion Code(s): R06.09 - OTHER FORMS OF DYSPNEA (4) Microcytic anemia Code(s): D50.9 - IRON DEFICIENCY ANEMIA, UNSPECIFIED (5) Stented coronary artery Code(s): Z95.5 - PRESENCE OF CORONARY ANGIOPLASTY IMPLANT AND GRAFT (6) Diastolic dysfunction Code(s): I51.9 - HEART DISEASE, UNSPECIFIED (7) COPD (chronic obstructive pulmonary disease) Code(s): J44.9 - CHRONIC OBSTRUCTIVE PULMONARY DISEASE, UNSPECIFIED Qualifiers : COPD type: unspecified COPD Qualified Code(s): J44.9 - Chronic obstructive pulmonary disease, unspecified (8) Hyperlipidemia associated with type 2 diabetes mellitus Code(s): E11.69 - TYPE 2 DIABETES MELLITUS WITH OTHER SPECIFIED COMPLICATION E78.5 - HYPERLIPIDEMIA, UNSPECIFIED (9) Pulmonary infiltrate present on computed tomography Code(s): R91.8 - OTHER NONSPECIFIC ABNORMAL FINDING OF LUNG FIELD Assessment/Plan 04/06/2016 Echo: Normal LV size and fxn, mild MR, [place], [place] 1. Anemia due to chronic GI blood loss 2. LV diastolic dysfunction 3. CAD s/p [place] PCI (stent), angina pectoris 4. Acute on CKD due to above improving 5. HTN/DM/hypercholesterolemia 6. COPD, bilateral pulmonary nodules resolved 1. Transfuse pRBC to maintain Hgb 8.0 with Lasix afterwards 2. Hold ASA for now, continue Amlodipine Besylate (Norvasc -) 2.5 mg PO DAILY, Atorvastatin Calcium (Lipitor -) 20 mg PO HS, Carvedilol (Coreg -) 25 mg PO BID, Furosemide (Lasix -) 40 mg PO DAILY, and Isosorbide Mononitrate (Imdur -) 60 mg PO DAILY Resume Ramipril (Altace -) 2.5 mg PO DAILY once renal function stabilizes 3. BD, O2, repeat chest CT shows resolution of bilateral pulmonary nodules, f/u repeat echo, compression therapy with AMANDA wraps 4. Plan for EGD/colonoscopy now euvolemic. No absolute contraindication in proceeding with GI work up in view of absence of ischemic symptoms, decompensated congestive heart failure or malignant arrhythmia.
--- NOTE | 2017-05-21 13:47 | PN ---
Progress Note (short form) - Note Progress Note: PULMONARY/MED Denies shortness of breath or chest pain. No abdominal pain. Last Vital Signs Temp Pulse Resp BP Pulse Ox 98.6 F 78 22 121/58 94 L 05/21/17 06:00 05/21/17 06:00 05/21/17 06:00 05/21/17 06:00 05/20/17 21:00 Gen: NAD at rest Heart: RRR Lung: decreased breath sounds at the bases Abd: soft, nontender Ext: + edema CBC, BMP 05/21/17 06:00 05/21/17 06:00 Active Medications Alprazolam (Xanax -) 0.5 mg PO BID PRN Amlodipine Besylate (Norvasc -) 2.5 mg PO DAILY [facility] Last Admin: 05/21/17 09:38 Dose: 2.5 mg Atorvastatin Calcium (Lipitor -) 10 mg PO HS [facility] Last Admin: 05/20/17 22:00 Dose: 10 mg Bisacodyl (Dulcolax -) 20 mg PO ONCE ONE Stop: 05/21/17 19:01 Carvedilol (Coreg -) 25 mg PO BID [facility] Last Admin: 05/21/17 09:38 Dose: 25 mg Diphenhydramine HCl (Benadryl -) 50 mg PO HS [facility] Last Admin: 05/20/17 22:00 Dose: 50 mg Furosemide (Lasix -) 40 mg PO DAILY [facility] Last Admin: 05/21/17 09:38 Dose: 40 mg Isosorbide Mononitrate (Imdur -) 60 mg PO DAILY [facility] Last Admin: 05/21/17 09:38 Dose: 60 mg A/P Anemia r/o GI Bleed CAD LV Diastolic Dysfunction Acute on Chronic Renal Failure improving HTN DM COPD - monitor H/H - continue cardiac meds - f/u echocardiogram - for EGD/colonoscopy - DVT prophylaxis
[2017-05-21] MEDS ORDERED: BISACODYL 5 MG TABLET.DR (FP) PO ONE (19:00)
--- NOTE | 2017-05-21 22:36 | PN ---
GI Progress Note Subjective: GI NOte; DR Flroes's and Dr. Ramirez's clearances are appreciated. Has almost completed the Gol[place] prep. I have again discussed the potential risks of EGD and colonoscopy including perforation and hemorrhage with Johanne and she has signed informed consents for both which I have scheduled with Dr. Parker for tomorrow. - Objective Vital Signs: Vital Signs Temperature 98.6 F 05/21/17 18:59 Pulse Rate 66 05/21/17 18:59 Respiratory Rate 18 05/21/17 18:59 Blood Pressure 124/50 05/21/17 18:59 O2 Sat by Pulse Oximetry (%) 94 L 05/21/17 09:00 Laboratory Tests 05/21/17 05/21/17 05/21/17 06:00 06:00 06:00 WBC 8.2 Hgb 8.3 L Hct 26.4 L INR 1.17 H BUN 14 D Creatinine 0.9 D Constitutional: No Distress Cardiovascular: Yes: Regular Rate and Rhythm Respiratory: Yes: CTA Bilaterally ...Auscultate: Yes: Normoactive Bowel Sounds ...Palpate: Yes: Soft, Other (nontender) Labs: CBC, BMP 05/21/17 06:00 05/21/17 06:00 INR, PTT INR 1.17 (0.82-1.09) H 05/21/17 06:00 Assessment/Plan Bowel prep approaching completion in preparation for EGD and colonoscopy in AM
[2017-05-21] MEDS: diphenhydrAMINE HCL 25 MG CAPSULE (FP) PO SCH (22:50)
[2017-05-21] MEDS: ATORVASTATIN CA 10 MG TABLET (FP) PO SCH (22:50)
[2017-05-22] MEDS ORDERED: PT OWN MED DRAWER 7, Y5N ONE ×2 (07:05→21:41)
[2017-05-22 07:56] LABS: BASOPHIL 1.2 % (0-2.0); MCH 20.8 pg (25.7-33.7); MCHC 30.5 g/dl (32.0-36.0); MEAN CELL VOLUME 68.1 fl (80-96); MEAN PLT VOLUME 7.1 fl (7.5-11.1); NEUTROPHILS 66.2 % (42.8-82.8); PLATELET COUNT 277 K/MM3 (134-434); RDW 22.4 % (11.6-15.6); WHITE BLOOD COUNT 8.5 K/mm3 (4.0-10.0)
[2017-05-22 09:02] LABS: ANION GAP 8 (8-16); CALCIUM 8.8 mg/dL (8.5-10.1); CO2 33 mmol/L (21-32); GLUCOSE,RANDOM 111 mg/dL (74-106); MAGNESIUM 2.3 mg/dL (1.8-2.4); PHOSPHOROUS 3.2 mg/dL (2.5-4.9)
[2017-05-22] MEDS ORDERED: LIDOCAINE HCL/PF 2% SDV 5ML VIAL ONE (09:34)
[2017-05-22] MEDS ORDERED: SUCCINYLCHOLINE CHLORIDE 200 MG/10 ML VIAL ONE (09:34)
[2017-05-22] MEDS ORDERED: PROPOFOL 20 ML ONE ×5 (09:34)
--- NOTE | 2017-05-22 10:51 | PN ---
Progress Note (short form) - Note Progress Note: EGD/Colonoscopy complete. Reports left in procedural section of physical chart and to be scanned into [facility] Problem List - Problems (1) Microcytic anemia Code(s): D50.9 - IRON DEFICIENCY ANEMIA, UNSPECIFIED
--- NOTE | 2017-05-22 11:33 | PN ---
Progress Note (short form) - Note Progress Note: PULMONARY/MED s/p EGD/colonoscopy showing small antral ulcer s/p biopsy, moderate diverticulosis, 2 polypectomies. Denies shortness of breath or chest pain. Last Vital Signs Temp Pulse Resp BP Pulse Ox 97.9 F 75 17 129/64 96 05/22/17 10:47 05/22/17 11:17 05/22/17 11:17 05/22/17 11:17 05/22/17 11:17 Gen: NAD at rest Heart: RRR Lung: decreased breath sounds at the bases Abd: soft, nontender Ext: + edema CBC, BMP 05/22/17 07:08 05/22/17 07:08 Active Medications Amlodipine Besylate (Norvasc -) 2.5 mg PO DAILY [facility] Last Admin: 05/21/17 09:38 Dose: 2.5 mg Ascorbic Acid (Vitamin C -) 500 mg PO BIDWM [facility] Atorvastatin Calcium (Lipitor -) 10 mg PO HS [facility] Last Admin: 05/21/17 22:50 Dose: 10 mg Carvedilol (Coreg -) 25 mg PO BID [facility] Last Admin: 05/21/17 22:51 Dose: 25 mg Diphenhydramine HCl (Benadryl -) 50 mg PO HS [facility] Last Admin: 05/21/17 22:50 Dose: 50 mg Ferrous Sulfate (Feosol -) 325 mg PO BIDWM [facility] Furosemide (Lasix -) 40 mg PO DAILY [facility] Last Admin: 05/21/17 09:38 Dose: 40 mg Isosorbide Mononitrate (Imdur -) 60 mg PO DAILY [facility] Last Admin: 05/21/17 09:38 Dose: 60 mg A/P Anemia Gastric Ulcer Diverticulosis CAD LV Diastolic Dysfunction Acute on Chronic Renal Failure improving HTN DM COPD - monitor H/H - continue cardiac meds - start diet - DVT prophylaxis - likely d/c home tomorrow if H/H stable, tolerating diet - f/u pathology results as outpt
[2017-05-22] MEDS: ISOSORBIDE MONONITRATE 60 MG TAB.SR.24H (FP) PO SCH (12:46)
[2017-05-22] MEDS: ASCORBIC ACID 500 MG TABLET (FP) PO SCH ×2 (12:46→17:53)
[2017-05-22] MEDS: FERROUS SO4 325 MG TABLET (FP) PO SCH ×2 (12:46→17:53)
[2017-05-22] MEDS: CARVEDILOL 25 MG TABLET (FP) PO SCH ×2 (12:46→21:18)
[2017-05-22] MEDS: FUROSEMIDE 40 MG TABLET (FP) PO SCH (12:47)
[2017-05-22] MEDS: amLODIPine BESYLATE 2.5 MG TABLET (FP) PO SCH (12:47)
--- NOTE | 2017-05-22 18:10 | PN ---
Progress Note, Physician Chief Complaint: Events noted Remains comfortable History of Present Illness: Patient was seen and examined. Awake and alert. Chart was reviewed Denies chest pain or palpitations. Intermittent dyspnea, improving Post EGD/colonoscopy - antral ulcer, diverticulosis, polypectomy - Current Medication List Current Medications: Active Medications Amlodipine Besylate (Norvasc -) 2.5 mg PO DAILY [facility] Last Admin: 05/22/17 12:47 Dose: 2.5 mg Ascorbic Acid (Vitamin C -) 500 mg PO BIDWM [facility] Last Admin: 05/22/17 17:53 Dose: 500 mg Atorvastatin Calcium (Lipitor -) 10 mg PO [facility] Last Admin: 05/21/17 22:50 Dose: 10 mg Carvedilol (Coreg -) 25 mg PO BID [facility] Last Admin: 05/22/17 12:46 Dose: 25 mg Diphenhydramine HCl (Benadryl -) 50 mg PO [facility] Last Admin: 05/21/17 22:50 Dose: 50 mg Ferrous Sulfate (Feosol -) 325 mg PO BIDWM [facility] Last Admin: 05/22/17 17:53 Dose: 325 mg Furosemide (Lasix -) 40 mg PO DAILY [facility] Last Admin: 05/22/17 12:47 Dose: 40 mg Isosorbide Mononitrate (Imdur -) 60 mg PO DAILY [facility] Last Admin: 05/22/17 12:46 Dose: 60 mg - Objective Vital Signs: Vital Signs Temperature 98.2 F 05/22/17 14:51 Pulse Rate 80 05/22/17 14:51 Respiratory Rate 18 05/22/17 14:51 Blood Pressure 111/48 05/22/17 14:51 O2 Sat by Pulse Oximetry (%) 94 L 05/22/17 12:15 Neck: Yes: Supple Cardiovascular: Yes: Regular Rate and Rhythm, S1, S2 Respiratory: Yes: CTA Bilaterally Gastrointestinal: Yes: Normal Bowel Sounds, Soft, Abdomen, Obese. No: Tenderness Edema: Yes Edema: LLE: 1+, RLE: 1+ Additional Findings/Remarks: - Review of Systems Constitutional: denies: Chills, Fever Cardiovascular: denies: Chest Pain. denies: Palpitations, Shortness of Breath Respiratory: denies: Cough, Hemoptysis, Orthopnea, PND, SOB, SOB on Exertion Gastrointestinal: denies: Nausea, Vomiting. denies: Abdominal Pain, Constipation, Diarrhea, Melena, Rectal Bleeding Neurological: denies: Dizziness, Headache, Seizure, Syncope Labs: CBC, BMP 05/22/17 07:08 05/22/17 07:08 INR, PTT INR 1.17 (0.82-1.09) H 05/21/17 06:00 Problem List - Problems (1) Arteriosclerotic heart disease (ASHD) Code(s): I25.10 - ATHSCL HEART DISEASE OF [place] CORONARY ARTERY W/O ANG PCTRS (2) CHF (congestive heart failure) Code(s): I50.9 - HEART FAILURE, UNSPECIFIED Qualifiers: Congestive heart failure type: diastolic Congestive heart failure chronicity: acute on chronic Qualified Code(s): I50.33 - Acute on chronic diastolic (congestive) heart failure (3) COPD (chronic obstructive pulmonary disease) Code(s): J44.9 - CHRONIC OBSTRUCTIVE PULMONARY DISEASE, UNSPECIFIED Qualifiers : COPD type: unspecified COPD Qualified Code(s): J44.9 - Chronic obstructive pulmonary disease, unspecified (4) Diabetes mellitus Code(s): E11.9 - TYPE 2 DIABETES MELLITUS WITHOUT COMPLICATIONS Qualifiers: Diabetes mellitus type: type 2 Diabetes mellitus complication status: without complication Diabetes mellitus half-way insulin use: without city mail carrier use Qualified Code(s): E11.9 - Type 2 diabetes mellitus without complications (5) Diastolic dysfunction Code(s): I51.9 - HEART DISEASE, UNSPECIFIED (6) Hyperlipidemia associated with type 2 diabetes mellitus Code(s): E11.69 - TYPE 2 DIABETES MELLITUS WITH OTHER SPECIFIED COMPLICATION E78.5 - HYPERLIPIDEMIA, UNSPECIFIED (7) Low hemoglobin Code(s): D64.9 - ANEMIA, UNSPECIFIED (8) Pulmonary nodules Code(s): R91.8 - OTHER NONSPECIFIC ABNORMAL FINDING OF LUNG FIELD (9) Stented coronary artery Code(s): Z95.5 - PRESENCE OF CORONARY ANGIOPLASTY IMPLANT AND GRAFT Assessment/Plan 1. Anemia due to chronic GI blood loss, antral ulcer, diverticulosis, s/p polypectomy 2. LV diastolic dysfunction 3. CAD s/p [place] PCI (stent), angina pectoris 4. Acute on CKD due to above 5. HTN 6. DM 7. Hypercholesterolemia 8. COPD and Pulmonary nodules PLAN: 1. Transfuse PRBC to maintain Hgb 8.0 with Lasix rory - monitor H/H 2. ASA to be restarted when cleared. Continue Amlodipine, Atorvastatin, Carvedilol, Furosemide and Isosorbide Mononitrate. Resume Ramipril once renal function stabilizes 3. Bronchodilator and O2 4. Status post EGD/colonoscopy 5. Transthoracic echocardiography result noted Further plans are to follow Varghese Vaughan MD
[2017-05-22] MEDS: ATORVASTATIN CA 10 MG TABLET (FP) PO SCH (21:18)
[2017-05-22] MEDS: diphenhydrAMINE HCL 25 MG CAPSULE (FP) PO SCH (21:18)
[2017-05-22] MEDS: PANTOPRAZOLE 40 MG TABLET (FP) PO SCH (21:19)
[2017-05-23 07:40] LABS: BASOPHIL 0.8 % (0-2.0); EOSINOPHIL 4.8 % (0-4.5); MCH 20.7 pg (25.7-33.7); MCHC 30.3 g/dl (32.0-36.0); MEAN CELL VOLUME 68.3 fl (80-96); MEAN PLT VOLUME 7.1 fl (7.5-11.1); NEUTROPHILS 63.9 % (42.8-82.8); PLATELET COUNT 273 K/MM3 (134-434); RDW 22.7 % (11.6-15.6); WHITE BLOOD COUNT 8.9 K/mm3 (4.0-10.0)
[2017-05-23] MEDS: ASCORBIC ACID 500 MG TABLET (FP) PO SCH ×2 (08:04→18:03)
[2017-05-23] MEDS: FERROUS SO4 325 MG TABLET (FP) PO SCH ×2 (08:04→18:02)
[2017-05-23 08:11] LABS: ANION GAP 7 (8-16); CALCIUM 8.6 mg/dL (8.5-10.1); CO2 30 mmol/L (21-32); GLUCOSE,RANDOM 104 mg/dL (74-106); MAGNESIUM 2.1 mg/dL (1.8-2.4)
[2017-05-23 08:13] LABS: CREATININE 1.1 mg/dL (0.55-1.02); PHOSPHOROUS 3.1 mg/dL (2.5-4.9)
[2017-05-23] MEDS: ISOSORBIDE MONONITRATE 60 MG TAB.SR.24H (FP) PO SCH (11:00)
[2017-05-23] MEDS: FUROSEMIDE 40 MG TABLET (FP) PO SCH (11:00)
[2017-05-23] MEDS: CARVEDILOL 25 MG TABLET (FP) PO SCH ×2 (11:00→22:15)
[2017-05-23] MEDS: amLODIPine BESYLATE 2.5 MG TABLET (FP) PO SCH (11:00)
[2017-05-23] MEDS: PANTOPRAZOLE 40 MG TABLET (FP) PO SCH (11:00)
--- NOTE | 2017-05-23 13:11 | PN ---
Progress Note, Physician History of Present Illness: progress alert,c/o feeling lightheaded,mild coley,-cp - Current Medication List Current Medications: Active Medications Amlodipine Besylate (Norvasc -) 2.5 mg PO DAILY [facility] Last Admin: 05/23/17 11:00 Dose: 2.5 mg Ascorbic Acid (Vitamin C -) 500 mg PO BIDWM [facility] Last Admin: 05/23/17 08:04 Dose: 500 mg Atorvastatin Calcium (Lipitor -) 10 mg PO [facility] Last Admin: 05/22/17 21:18 Dose: 10 mg Carvedilol (Coreg -) 25 mg PO BID [facility] Last Admin: 05/23/17 11:00 Dose: 25 mg Diphenhydramine HCl (Benadryl -) 50 mg PO [facility] Last Admin: 05/22/17 21:18 Dose: 50 mg Ferrous Sulfate (Feosol -) 325 mg PO BIDWM [facility] Last Admin: 05/23/17 08:04 Dose: 325 mg Furosemide (Lasix -) 40 mg PO DAILY [facility] Last Admin: 05/23/17 11:00 Dose: 40 mg Isosorbide Mononitrate (Imdur -) 60 mg PO DAILY [facility] Last Admin: 05/23/17 11:00 Dose: 60 mg Pantoprazole Sodium (Protonix -) 40 mg PO DAILY [facility] Last Admin: 05/23/17 11:00 Dose: 40 mg - Objective Vital Signs: Vital Signs Temperature 98.8 F 05/23/17 10:00 Pulse Rate 74 05/23/17 10:00 Respiratory Rate 20 05/23/17 10:00 Blood Pressure 126/59 05/23/17 10:00 O2 Sat by Pulse Oximetry (%) 95 05/22/17 21:00 Constitutional: Yes: Well Nourished, Calm Eyes: Yes: WNL HENT: Yes: WNL Neck: Yes: WNL Cardiovascular: Yes: Regular Rate and Rhythm, S1, S2 Respiratory: Yes: Diminished Gastrointestinal: Yes: Normal Bowel Sounds, Soft Extremities: Yes: WNL Edema: No Labs: CBC, BMP 05/23/17 05:35 05/23/17 05:35 INR, PTT INR 1.17 (0.82-1.09) H 05/21/17 06:00 Problem List - Problems (1) Arteriosclerotic heart disease (ASHD) Code(s): I25.10 - ATHSCL HEART DISEASE OF [place] CORONARY ARTERY W/O ANG PCTRS (2) CHF (congestive heart failure) Code(s): I50.9 - HEART FAILURE, UNSPECIFIED Qualifiers: Congestive heart failure type: diastolic Congestive heart failure chronicity: acute on chronic Qualified Code(s): I50.33 - Acute on chronic diastolic (congestive) heart failure (3) COPD (chronic obstructive pulmonary disease) Code(s): J44.9 - CHRONIC OBSTRUCTIVE PULMONARY DISEASE, UNSPECIFIED Qualifiers : COPD type: unspecified COPD Qualified Code(s): J44.9 - Chronic obstructive pulmonary disease, unspecified (4) Diabetes mellitus Code(s): E11.9 - TYPE 2 DIABETES MELLITUS WITHOUT COMPLICATIONS Qualifiers: Diabetes mellitus type: type 2 Diabetes mellitus complication status: without complication Diabetes mellitus intermodal dispatcher insulin use: without prison use Qualified Code(s): E11.9 - Type 2 diabetes mellitus without complications (5) Diastolic dysfunction Code(s): I51.9 - HEART DISEASE, UNSPECIFIED (6) Dyspnea on exertion Code(s): R06.09 - OTHER FORMS OF DYSPNEA (7) Low hemoglobin Code(s): D64.9 - ANEMIA, UNSPECIFIED Assessment/Plan A/P Anemia Gastric Ulcer Diverticulosis CAD LV Diastolic Dysfunction Acute on Chronic Renal Failure improving HTN DM COPD - monitor H/H - continue cardiac meds - po as tolerated - DVT prophylaxis - likely d/c home tomorrow - f/u pathology results as outpt DR HEREDIA
--- NOTE | 2017-05-23 14:45 | PATH ---
Surgical Pathology Report Patient Name: ABBY CASTILLO [facility]. Rec. #: [id number] /Age/Gender: 1940 (Age: 77) / F Account: [id number] Location: [address] [place] [address]/[facility] Taken: 05/22/2017 Received: 05/22/2017 Reported: 05/23/2017 Physicians: Alex Parker D.O. Specimen(s) Received A: BX GASTRIC ULCER ANTRUM B: BX ANTRUM AND BODY C: BX CECAL POLYP D: POLYP SIGMOID Clinical History Anemia Gastritis, gastric ulcer, diverticulosis, colon polyps, hemorrhoids Final Diagnosis A. STOMACH, ANTRUM, GASTRIC ULCER, BIOPSY: ULCERATED GASTRIC ANTRAL MUCOSA WITH ASSOCIATED ACTIVE AND CHRONIC INFLAMMATION AND REACTIVE GASTROPATHY WITH FOVEOLAR HYPERPLASIA. NO DYSPLASIA OR CARCINOMA IDENTIFIED. IMMUNOSTAIN FOR H. PYLORI IS NEGATIVE FOR ORGANISMS. B. STOMACH, ANTRUM AND BODY, BIOPSY: GASTRIC ANTRAL AND OXYNTIC MUCOSA WITH MODERATE CHRONIC GASTRITIS AND REACTIVE GASTROPATHY. IMMUNOSTAIN FOR H. PYLORI IS NEGATIVE FOR ORGANISMS. C. COLON, CECUM, POLYP, BIOPSY: FRAGMENTS OF TUBULAR ADENOMA. D. COLON, SIGMOID, POLYP, BIOPSY: POLYPOID FRAGMENT OF COLONIC MUCOSA WITH INFLAMED GRANULATION TISSUE AND HYPERPLASTIC CHANGE, MOST CONSISTENT WITH INFLAMMATORY POLYP. Electronically Signed Ankit Estrada M.D. Gross Description A. Received in formalin, labeled "biopsy gastric ulcer antrum" are 5 samaniego, irregular portions of soft tissue ranging from 0.1-0.3 cm in greatest dimension. The specimens are submitted in toto in one cassette. B. Received in formalin, labeled "biopsy antrum and body" are 3 samaniego, irregular portions of soft tissue ranging from 0.1-0.2 cm in greatest dimension. The specimens are submitted in toto in one cassette. C. Received in formalin, labeled "biopsy cecal polyp" are 4 samaniego, irregular portions of soft tissue averaging 0.2 cm in greatest dimension. The specimens are submitted in toto in one cassette. D. Received in formalin, labeled "biopsy sigmoid polyp" is a samaniego, irregular portion of soft tissue measuring 0.1 cm in greatest dimension. The specimen is submitted in toto in one cassette. 05/22/201705/22/2017
--- NOTE | 2017-05-23 17:55 | PN ---
Progress Note, Physician History of Present Illness: LE edema improving with diuresis and wraps. EGD showed gastric ulcer.. - Current Medication List Current Medications: Active Medications Amlodipine Besylate (Norvasc -) 2.5 mg PO DAILY [facility] Last Admin: 05/23/17 11:00 Dose: 2.5 mg Ascorbic Acid (Vitamin C -) 500 mg PO BIDWM [facility] Last Admin: 05/23/17 08:04 Dose: 500 mg Atorvastatin Calcium (Lipitor -) 10 mg PO [facility] Last Admin: 05/22/17 21:18 Dose: 10 mg Carvedilol (Coreg -) 25 mg PO BID [facility] Last Admin: 05/23/17 11:00 Dose: 25 mg Diphenhydramine HCl (Benadryl -) 50 mg PO [facility] Last Admin: 05/22/17 21:18 Dose: 50 mg Ferrous Sulfate (Feosol -) 325 mg PO BIDWM [facility] Last Admin: 05/23/17 08:04 Dose: 325 mg Furosemide (Lasix -) 40 mg PO DAILY [facility] Last Admin: 05/23/17 11:00 Dose: 40 mg Isosorbide Mononitrate (Imdur -) 60 mg PO DAILY [facility] Last Admin: 05/23/17 11:00 Dose: 60 mg Pantoprazole Sodium (Protonix -) 40 mg PO DAILY [facility] Last Admin: 05/23/17 11:00 Dose: 40 mg - Objective Vital Signs: Vital Signs Temperature 98.7 F 05/23/17 15:23 Pulse Rate 76 05/23/17 15:23 Respiratory Rate 19 05/23/17 15:23 Blood Pressure 132/62 05/23/17 15:23 O2 Sat by Pulse Oximetry (%) 95 05/22/17 21:00 Constitutional: Yes: No Distress, Calm Neck: Yes: Supple Cardiovascular: Yes: Regular Rate and Rhythm Respiratory: Yes: Regular, Diminished Gastrointestinal: Yes: Soft, Hypoactive Bowel Sounds Edema: Yes Edema: LLE: Trace, RLE: Trace Labs: CBC, BMP 05/23/17 05:35 05/23/17 05:35 INR, PTT INR 1.17 (0.82-1.09) H 05/21/17 06:00 Problem List - Problems (1) Arteriosclerotic heart disease (ASHD) Code(s): I25.10 - ATHSCL HEART DISEASE OF [place] CORONARY ARTERY W/O ANG PCTRS (2) Diabetes mellitus Code(s): E11.9 - TYPE 2 DIABETES MELLITUS WITHOUT COMPLICATIONS Qualifiers: Diabetes mellitus type: type 2 Diabetes mellitus complication status: without complication Diabetes mellitus terminal system operator insulin use: without terminal system operator use Qualified Code(s): E11.9 - Type 2 diabetes mellitus without complications (3) Dyspnea on exertion Code(s): R06.09 - OTHER FORMS OF DYSPNEA (4) Microcytic anemia Code(s): D50.9 - IRON DEFICIENCY ANEMIA, UNSPECIFIED (5) Stented coronary artery Code(s): Z95.5 - PRESENCE OF CORONARY ANGIOPLASTY IMPLANT AND GRAFT (6) Diastolic dysfunction Code(s): I51.9 - HEART DISEASE, UNSPECIFIED (7) COPD (chronic obstructive pulmonary disease) Code(s): J44.9 - CHRONIC OBSTRUCTIVE PULMONARY DISEASE, UNSPECIFIED Qualifiers : COPD type: unspecified COPD Qualified Code(s): J44.9 - Chronic obstructive pulmonary disease, unspecified (8) Hyperlipidemia associated with type 2 diabetes mellitus Code(s): E11.69 - TYPE 2 DIABETES MELLITUS WITH OTHER SPECIFIED COMPLICATION E78.5 - HYPERLIPIDEMIA, UNSPECIFIED (9) Pulmonary infiltrate present on computed tomography Code(s): R91.8 - OTHER NONSPECIFIC ABNORMAL FINDING OF LUNG FIELD (10) Gastric ulcer Code(s): K25.9 - GASTRIC ULCER, UNSP ACUTE OR CHRONIC, W/O HEMOR OR PERF Qualifiers: Gastric ulcer chronicity: unspecified ulcer chronicity Gastric ulcer complication status: without hemorrhage or perforation Qualified Code(s) : K25.9 - Gastric ulcer, unspecified as acute or chronic, without hemorrhage or perforation Assessment/Plan 04/06/2016 Echo: Normal LV size and fxn, mild MR, TR, MS 05/21/2017 Echo: Low normal LV fxn, mild TR, AR 1. Anemia due to chronic GI blood loss, antral ulcer, diverticulosis, s/p polypectomy 2. LV diastolic dysfunction 3. CAD s/p [place] PCI (stent), angina pectoris 4. Acute on CKD due to above 5. HTN 6. DM 7. Hypercholesterolemia 8. COPD and Pulmonary nodules PLAN: 1. Transfuse PRBC to maintain Hgb 8.0 with Lasix rory - monitor H/H 2. Resume ASA with GI protection once hemostasis assured. Continue Amlodipine, Atorvastatin, Carvedilol, Furosemide and Isosorbide Mononitrate. Resume Ramipril as renal function stabilizes 3. Bronchodilator and O2 4. D/c planning
[2017-05-23] MEDS: diphenhydrAMINE HCL 25 MG CAPSULE (FP) PO SCH (22:14)
[2017-05-23] MEDS: ATORVASTATIN CA 10 MG TABLET (FP) PO SCH (22:15)
[2017-05-24 00:08] LABS: A/G RATIO 1.1 (0.7-1.7); ALBUMIN 3.2 g/dL (2.9-4.4); M-SPIKE Not Observed g/dL (Not Observed); TOTAL PROTEIN 6.2 g/dL (6.0-8.5)
[2017-05-24 07:01] VITALS: TEMP 97.6
[2017-05-24 07:11] LABS: ANION GAP 7 (8-16); CALCIUM 8.8 mg/dL (8.5-10.1); CO2 33 mmol/L (21-32); GLUCOSE,RANDOM 111 mg/dL (74-106)
[2017-05-24 07:34] LABS: BASOPHIL 0.6 % (0-2.0); EOSINOPHIL 3.9 % (0-4.5); MCH 20.8 pg (25.7-33.7); MCHC 30.3 g/dl (32.0-36.0); MEAN CELL VOLUME 68.7 fl (80-96); MEAN PLT VOLUME 8.5 fl (7.5-11.1); NEUTROPHILS 60.6 % (42.8-82.8); PLATELET COUNT 251 K/MM3 (134-434); RDW 22.6 % (11.6-15.6); WHITE BLOOD COUNT 8.8 K/mm3 (4.0-10.0)
[2017-05-24] MEDS: FERROUS SO4 325 MG TABLET (FP) PO SCH (08:09)
[2017-05-24] MEDS: ASCORBIC ACID 500 MG TABLET (FP) PO SCH (08:09)
[2017-05-24] MEDS ORDERED: ASPIRIN 81 MG CHEWABLE TABLETS PO SCH (10:00)
[2017-05-24] MEDS ORDERED: RAMIPRIL 2.5 MG CAPSULE (FP) PO SCH (10:00)
[2017-05-24] MEDS: PANTOPRAZOLE 40 MG TABLET (FP) PO SCH (10:10)
[2017-05-24] MEDS: ISOSORBIDE MONONITRATE 60 MG TAB.SR.24H (FP) PO SCH (10:10)
[2017-05-24] MEDS: FUROSEMIDE 40 MG TABLET (FP) PO SCH (10:10)
[2017-05-24] MEDS: CARVEDILOL 25 MG TABLET (FP) PO SCH (10:10)
[2017-05-24] MEDS: amLODIPine BESYLATE 2.5 MG TABLET (FP) PO SCH (10:10)
[2017-05-24 10:13] VITALS: BP 140/65; PULSE 72
--- NOTE | 2017-05-24 10:33 | DS ---
Physical Examination Vital Signs: Vital Signs Temperature 97.6 F 05/24/17 06:00 Pulse Rate 72 05/24/17 10:00 Respiratory Rate 18 05/24/17 10:00 Blood Pressure 140/65 05/24/17 10:00 O2 Sat by Pulse Oximetry (%) 93 L 05/24/17 09:00 Constitutional: Yes: No Distress, Calm Eyes: Yes: Conjunctiva Clear, EOM Intact HENT: Yes: Atraumatic, Normocephalic Neck: Yes: Supple, Trachea Midline Cardiovascular: Yes: Regular Rate and Rhythm Respiratory: Yes: Regular, CTA Bilaterally Gastrointestinal: Yes: Normal Bowel Sounds, Soft. No: Tenderness Edema: Yes Neurological: Yes: Alert, Oriented Labs: CBC, BMP 05/24/17 06:15 05/24/17 06:15 Discharge Summary Reason For Visit: LOW HEMOGLOBIN; DYSPNEA ON EXERTION Current Active Problems Arteriosclerotic heart disease (ASHD) (Acute) CHF (congestive heart failure) (Acute) COPD (chronic obstructive pulmonary disease) (Acute) Diabetes mellitus (Acute) Diastolic dysfunction (Acute) Dyspnea on exertion (Acute) Gastric ulcer (Acute) Hyperlipidemia associated with type 2 diabetes mellitus (Acute) Low hemoglobin (Acute) Microcytic anemia (Acute) Pulmonary infiltrate present on computed tomography (Acute) Pulmonary nodules (Acute) Stented coronary artery (Acute) Procedures: Principal: EGD/colonoscopy Hospital Course: 77Female with h/o HTN, hypercholesterolemia, CAD s/p multivessel PCI (stent), angina pectoris, diastolic dysfunction, type 2 DM, obesity and COPD presented with progressive exertional SOB with fatigue, orthopnea and worsening LE swelling over a month, worse over the last few days. In ER, her Hgb was noted to be 7 and FOBT was negative. She denied any chest pain, near or true syncope , palpitations or PND. She was transfused 1 unit PRBC with appropriate response. Taken for EGD/colonoscopy which showed a small antral ulcer and 2 polyps. H/H stable, no further episodes of bleeding, stable for discharge with follow up. Condition: Improved - Instructions Diet, Activity, Other Instructions: Avoid NSAIDS such as ibuprofen, advil, motrin, alleve, naprosyn. Referrals: Alexei Arcos MD [Primary Care Provider] - Hadley Parker DO [Staff Physician] - Varghese Vaughan MD [Staff Physician] - Disposition: HOME - Home Medications Comprehensive Discharge Medication List: Ambulatory Orders Amlodipine/Atorvastatin [Amlodipine-Atorvast 2.5-10 mg] 1 each PO BID 11/02/14 Aspirin [ASA -] 81 mg PO DAILY 11/02/14 Carvedilol [Coreg -] 25 mg PO BID 11/02/14 Cholecalciferol (Vitamin D3) [Vitamin D3 -] 2,000 unit PO DAILY 11/02/14 Furosemide [Lasix -] 40 mg PO DAILY 11/02/14 Glipizide [Glipizide ER] 10 mg PO DAILY 11/02/14 Isosorbide Mononitrate [Imdur] 60 mg PO DAILY 11/02/14 Albuterol 2.5/Ipratropium 0.5 [Duoneb -] 1 neb NEB QIDR #0 vial 11/10/14 Alprazolam [Xanax] 0.5 mg PO Q6H PRN #0 tablet 11/10/14 Acetaminophen/Diphenhydramine [Tylenol Pm Ex-Strength Caplet] 2 tab PO HS Saxagliptin HCl/Metformin HCl [Kombiglyze Xr 2.5-1,000 mg Tab] 1 tab PO DAILY Amlodipine Besylate [Norvasc -] 2.5 mg PO DAILY tablet 05/24/17 Ascorbic Acid [Vitamin C -] 500 mg PO BIDWM tablet 05/24/17 Aspirin [ASA -] 81 mg PO DAILY tab.chew 05/24/17 Atorvastatin Ca [Lipitor] 10 mg PO HS tablet 05/24/17 Carvedilol [Coreg -] 25 mg PO BID tablet 05/24/17 Diphenhydramine HCl [Benadryl Capsule -] 50 mg PO HS cap 05/24/17 Ferrous Sulfate [Feosol] 325 mg PO BIDWM tab 05/24/17 Furosemide [Lasix -] 40 mg PO DAILY tablet 05/24/17 Isosorbide Mononitrate [Imdur -] 60 mg PO DAILY tab 05/24/17 Pantoprazole Sodium [Protonix -] 40 mg PO DAILY #30 tab 05/24/17 Ramipril [Altace] 2.5 mg PO DAILY cap 05/24/17
[2017-05-24] MEDS ORDERED: POTASSIUM CHLORIDE TABS 20 MEQ TABLET.ER (FP) PO ONE (10:45)
== END 2017-05-24 12:13 | disposition home or self-care (01) | DRG 812 ==
LOC: JER 11:43 → JERBED 13:04 → J5S 16:29
PROVIDERS: ADMIT Specialist; ATTEND Specialist
PROC: 30233N1 Transfusion of Nonautologous Red Blood Cells into Peripheral Vein, Percutaneous Approach (ICD-10-PCS; 2017-05-18)
PROC: 0DBN8ZX Excision of Sigmoid Colon, Via Natural or Artificial Opening Endoscopic, Diagnostic (ICD-10-PCS; 2017-05-22)
PROC: 0DBH8ZX Excision of Cecum, Via Natural or Artificial Opening Endoscopic, Diagnostic (ICD-10-PCS; 2017-05-22)
PROC: 0DB68ZX Excision of Stomach, Via Natural or Artificial Opening Endoscopic, Diagnostic (ICD-10-PCS; principal; 2017-05-22 12:30)
DX: D50.8 Other iron deficiency anemias (principal); I25.110 Atherosclerotic heart disease of native coronary artery with unstable angina pectoris; Z68.42 Body mass index [BMI] 45.0-49.9, adult; I13.0 Hypertensive heart and chronic kidney disease with heart failure and stage 1 through stage 4 chronic kidney disease, or unspecified chronic kidney disease; N17.8 Other acute kidney failure; E78.5 Hyperlipidemia, unspecified; J44.9 Chronic obstructive pulmonary disease, unspecified; Z87.891 Personal history of nicotine dependence; R06.09 Other forms of dyspnea; E66.01 Morbid (severe) obesity due to excess calories; Z71.3 Dietary counseling and surveillance; R91.1 Solitary pulmonary nodule; E11.22 Type 2 diabetes mellitus with diabetic chronic kidney disease; N18.9 Chronic kidney disease, unspecified; I50.9 Heart failure, unspecified; Z91.19 Patient's noncompliance with other medical treatment and regimen; Z95.5 Presence of coronary angioplasty implant and graft; K25.9 Gastric ulcer, unspecified as acute or chronic, without hemorrhage or perforation; K57.30 Diverticulosis of large intestine without perforation or abscess without bleeding; D12.5 Benign neoplasm of sigmoid colon; D12.0 Benign neoplasm of cecum; K64.8 Other hemorrhoids
CPT/HCPCS: 36415; 36430; 71010-TC; 71250-TC; 80048; 80053; 81003; 81015; 82272; 82728; 83516; 83540; 83550; 83735; 83880; 84100; 84155; 84165; 85025; 85027; 85044; 85610; 86140; 86850; 86900; 86901; 86922; 88305-TC; 93005; 93010; 93306-TC; 99283-25; P9038; P9058

== ENCOUNTER 2023-02-17 04:42 | Inpatient (IN) | payer OTHER ==
[2023-02-17] MEDS ORDERED: ACETAMINOPHEN 1000 MG/100 ML BAG IVPB ONE (05:06)
[2023-02-17] MEDS ORDERED: VANCOMYCIN 1 GM in D5W (PRE-DOCKED) 1,000 MG/250 ML (RESTRICTED TO ID ONLY IVPB ONE (05:07)
[2023-02-17] MEDS ORDERED: PIPERACILLIN/TAZOB 4.5 GM 4.5 GM in DEXTROSE 5%-WATER 100 ML IVPB ONE (05:08)
[2023-02-17] MEDS ORDERED: RAPID SEQUENCE INTUBATION KIT NR ONE (05:25)
[2023-02-17] MEDS ORDERED: ROCURONIUM BROMIDE 50 MG/5 ML SYRINGE ONE (05:29)
[2023-02-17] MEDS ORDERED: ACETAMINOPHEN INJECTION 100 ML IVPB ONE (05:48)
[2023-02-17] MEDS ORDERED: MIDAZOLAM IN 0.9 % SOD.CHLORID 1 MG/1 ML PLAST..BAG ONE (06:12)
[2023-02-17] MEDS ORDERED: MIDAZOLAM IN 0.9 % SOD.CHLORID 100 MG/100 ML PLAST..BAG IVPB SCH (06:15)
[2023-02-17 06:23] LABS: VENOUS O2 SATURATION 58.4 % (70-80)
[2023-02-17] MEDS ORDERED: FENTANYL NS IVPB 500 MCG/100 ML BAG IVPB ONE (06:26)
[2023-02-17] MEDS ORDERED: PIPERACILLIN/TAZOB 4.5 GM 4.5 GM/100 ML BAG IVPB ONE (06:26)
[2023-02-17 06:32] LABS: BASO % 0.5 % (0-2.0); EOS % 0.1 % (0-4.5); HEMATOCRIT 35.9 % (32.4-45.2); HEMOGLOBIN 12.1 GM/dL (10.7-15.3); LYMPH % 12.7 % (8-40); MCH 30.1 pg (25.7-33.7); MCHC 33.8 g/dl (32.0-36.0); MEAN CELL VOLUME 89.3 fl (80-96); MEAN PLT VOLUME 9.3 fl (7.5-11.1); MONO % 7.2 % (3.8-10.2); NEUT % 79.5 % (42.8-82.8); PLATELET COUNT 257 10^3/uL (134-434); RBC 4.02 M/mm3 (3.60-5.2); RDW 14.6 % (11.6-15.6); WHITE BLOOD COUNT 17.5 K/mm3 (4.0-10.0)
[2023-02-17] MEDS: MIDAZOLAM IN 0.9 % SOD.CHLORID 100 MG/100 ML PLAST..BAG IVPB SCH (06:41)
[2023-02-17] MEDS ORDERED: ROCURONIUM BROMIDE 50 MG/5 ML VIAL IV ONE (06:42)
[2023-02-17] MEDS: FENTANYL NS IVPB 500 MCG/100 ML BAG IVPB SCH (06:50)
[2023-02-17 06:52] LABS: VENOUS PCO2 74.4 mmHg (38-52); VENOUS PH 7.161 (7.310-7.410)
[2023-02-17 07:01] LABS: CHLORIDE 102 mmol/L (98-107); POTASSIUM 4.6 mmol/L (3.5-5.1); SODIUM 135 mmol/L (136-145)
[2023-02-17 07:03] LABS: ALBUMIN 3.3 g/dl (3.4-5.0); ANION GAP 10 MMOL/L (8-16); CALCIUM 8.4 mg/dL (8.5-10.1); CO2 24 mmol/L (21-32)
[2023-02-17 07:04] LABS: BLOOD UREA NITROGEN 31.6 mg/dL (7-18); GLUCOSE,RANDOM 247 mg/dL (74-106)
[2023-02-17 07:07] LABS: CREATININE 1.5 mg/dL (0.55-1.3); SGOT/AST 257 U/L (15-37); SGPT/ALT 160 U/L (13-61)
[2023-02-17] MEDS ORDERED: ETOMIDATE 40 MG/20 ML VIAL IVPUSH ONE (07:07)
[2023-02-17 07:08] LABS: BILIRUBIN,TOTAL 1.1 mg/dL (0.2-1); TOT PROT 6.9 g/dl (6.4-8.2)
[2023-02-17 07:10] LABS: ALK PHOS 176 U/L (45-117)
[2023-02-17] MEDS ORDERED: VANCOMYCIN/WATER FOR INJ (PEG) 1,000 MG/200 ML BAG IVPB ONE (07:28)
[2023-02-17 07:51] LABS: LACTIC ACID 3.2 mmol/L (0.4-2.0)
[2023-02-17] MEDS ORDERED: MIDAZOLAM HCL 2 MG/2 ML SINGLE DOSE VIAL IVPUSH STA (10:01)
[2023-02-17] MEDS ORDERED: fentaNYL CITRATE 250 MCG/5 ML VIAL ONE (10:05)
[2023-02-17 12:06] LABS: ARTERIAL BLD GAS O2 SATURATION 98.6 % (95-98); ARTERIAL BLOOD GAS BASE EXCESS -0.1 mmol/L (-2-2); ARTERIAL BLOOD GAS PO2 130.8 mmHg (80-100); ARTERIAL BLOOD GAS pH 7.396 (7.350-7.450)
[2023-02-17 12:09] LABS: ALLENS TEST POSITIVE
[2023-02-17 12:12] LABS: VENT MODE A; VENT RATE 14
[2023-02-17] MEDS: NOREPINEPHRINE 0.9 % NACL 8 MG/250 ML BAG IVPB SCH (12:30)
[2023-02-17] MEDS ORDERED: NOREPINEPHRINE BITARTRATE 16,000 MCG in SODIUM CHLORIDE 484 ML IV SCH (12:45)
[2023-02-17 13:24] LABS: EPI CELLS 2 /uL (0-25.1); HYALINE CASTS 0 /uL (0-3.1); PH,URINE 7.5 (5.0-8.0); URINE APPEARANCE CLEAR; URINE BACTERIA 2 /uL (0-1359); URINE BILIRUBIN NEGATIVE (NEGATIVE); URINE COLOR YELLOW; URINE GLUCOSE (UA) NEGATIVE (NEGATIVE); URINE KETONE NEGATIVE (NEGATIVE); URINE LEUK ESTERASE NEGATIVE (NEGATIVE); URINE NITRITE NEGATIVE (NEGATIVE); URINE PROTEIN 2+ (NEGATIVE); URINE WBC 1 /uL (0-25.8)
[2023-02-17 13:33] LABS: POTASSIUM 3.6 mmol/L (3.5-5.1)
[2023-02-17 13:35] LABS: ALBUMIN 2.9 g/dl (3.4-5.0); CALCIUM 8.1 mg/dL (8.5-10.1)
[2023-02-17 13:36] LABS: BLOOD UREA NITROGEN 39.6 mg/dL (7-18)
[2023-02-17 13:38] LABS: CREATININE 1.6 mg/dL (0.55-1.3)
[2023-02-17 13:40] LABS: BILIRUBIN,TOTAL 0.9 mg/dL (0.2-1); TOT PROT 5.9 g/dl (6.4-8.2)
[2023-02-17 14:27] LABS: URINE RBC 83.9 /uL (0-23.9)
[2023-02-17 15:32] LABS: HEMATOCRIT 32.9 % (32.4-45.2); MCH 29.2 pg (25.7-33.7); MCHC 33.4 g/dl (32.0-36.0); MEAN CELL VOLUME 87.4 fl (80-96); MEAN PLT VOLUME 8.3 fl (7.5-11.1); PLATELET COUNT 200 10^3/uL (134-434); RBC 3.77 M/mm3 (3.60-5.2); RDW 14.2 % (11.6-15.6); WHITE BLOOD COUNT 17.6 K/mm3 (4.0-10.0)
[2023-02-17 15:47] LABS: POTASSIUM 3.5 mmol/L (3.5-5.1)
[2023-02-17 15:48] LABS: CALCIUM 8.2 mg/dL (8.5-10.1)
[2023-02-17 15:49] LABS: BLOOD UREA NITROGEN 38.2 mg/dL (7-18); MAGNESIUM 1.9 mg/dL (1.8-2.4)
[2023-02-17 15:53] LABS: CREATININE 1.5 mg/dL (0.55-1.3)
[2023-02-17] MEDS: HEPARIN NA (PORCINE) 5,000 UNITS/ML 1ML VIAL SQ SCH (21:03)
[2023-02-18 07:33] LABS: POTASSIUM 3.2 mmol/L (3.5-5.1)
[2023-02-18 07:35] LABS: CALCIUM 7.7 mg/dL (8.5-10.1)
[2023-02-18 07:36] LABS: HEMATOCRIT 31.2 % (32.4-45.2); HEMOGLOBIN 10.7 GM/dL (10.7-15.3); MCH 29.8 pg (25.7-33.7); MCHC 34.3 g/dl (32.0-36.0); MEAN CELL VOLUME 86.8 fl (80-96); MEAN PLT VOLUME 8.9 fl (7.5-11.1); PLATELET COUNT 175 10^3/uL (134-434); RDW 14.2 % (11.6-15.6); WHITE BLOOD COUNT 10.1 K/mm3 (4.0-10.0)
[2023-02-18 07:36] LABS: ALBUMIN 2.5 g/dl (3.4-5.0); BLOOD UREA NITROGEN 39.1 mg/dL (7-18); MAGNESIUM 1.9 mg/dL (1.8-2.4)
[2023-02-18 07:38] LABS: CREATININE 1.3 mg/dL (0.55-1.3)
[2023-02-18 07:39] LABS: PHOSPHOROUS 3.2 mg/dL (2.5-4.9)
[2023-02-18 07:40] LABS: BILIRUBIN,TOTAL 0.7 mg/dL (0.2-1); TOT PROT 5.4 g/dl (6.4-8.2)
[2023-02-18] MEDS: FENTANYL NS IVPB 500 MCG/100 ML BAG IVPB SCH ×2 (09:03→21:19)
[2023-02-18] MEDS: HEPARIN NA (PORCINE) 5,000 UNITS/ML 1ML VIAL SQ SCH ×2 (09:03→21:09)
[2023-02-18] MEDS: PANTOPRAZOLE SODIUM 40 MG VIAL IVPUSH SCH (09:03)
[2023-02-18] MEDS ORDERED: CEFTRIAXONE 2 GM in DEXTROSE 5%-WATER 100 ML IVPB ONE (11:30)
[2023-02-18] MEDS ORDERED: AZITHROMYCIN IVPB 500 MG/250 ML BAG IVPB SCH (13:00)
[2023-02-18 16:15] LABS: HEMATOCRIT 27.4 % (32.4-45.2); MCH 28.8 pg (25.7-33.7); MEAN CELL VOLUME 87.3 fl (80-96); MEAN PLT VOLUME 7.8 fl (7.5-11.1); PLATELET COUNT 153 10^3/uL (134-434); RBC 3.14 M/mm3 (3.60-5.2); RDW 14.4 % (11.6-15.6); WHITE BLOOD COUNT 8.8 K/mm3 (4.0-10.0)
[2023-02-18] MEDS: MIDAZOLAM IN 0.9 % SOD.CHLORID 100 MG/100 ML PLAST..BAG IVPB SCH (21:18)
[2023-02-19] MEDS: FENTANYL NS IVPB 500 MCG/100 ML BAG IVPB SCH ×2 (06:44→08:02)
[2023-02-19 06:58] LABS: ARTERIAL BLD GAS O2 SATURATION 97.7 % (95-98); ARTERIAL BLOOD GAS BASE EXCESS 0.3 mmol/L (-2-2); ARTERIAL BLOOD GAS PO2 101.4 mmHg (80-100); ARTERIAL BLOOD GAS pH 7.412 (7.350-7.450)
[2023-02-19 07:06] LABS: VENT MODE A/C; VENT RATE 14
[2023-02-19 07:31] LABS: BASO % 0.3 % (0-2.0); EOS % 0.2 % (0-4.5); HEMATOCRIT 29.2 % (32.4-45.2); HEMOGLOBIN 10.1 GM/dL (10.7-15.3); LYMPH % 8.1 % (8-40); MCHC 34.5 g/dl (32.0-36.0); MEAN CELL VOLUME 86.7 fl (80-96); MEAN PLT VOLUME 8.7 fl (7.5-11.1); MONO % 9.3 % (3.8-10.2); NEUT % 82.1 % (42.8-82.8); PLATELET COUNT 185 10^3/uL (134-434); RBC 3.36 M/mm3 (3.60-5.2); RDW 14.3 % (11.6-15.6); WHITE BLOOD COUNT 9.8 K/mm3 (4.0-10.0)
[2023-02-19 07:54] LABS: POTASSIUM 3.4 mmol/L (3.5-5.1)
[2023-02-19 07:57] LABS: ALBUMIN 2.3 g/dl (3.4-5.0); BLOOD UREA NITROGEN 33.8 mg/dL (7-18); CALCIUM 8.1 mg/dL (8.5-10.1); MAGNESIUM 2.2 mg/dL (1.8-2.4)
[2023-02-19] MEDS: NOREPINEPHRINE 0.9 % NACL 8 MG/250 ML BAG IVPB SCH ×3 (08:00→17:12)
[2023-02-19] MEDS: MIDAZOLAM IN 0.9 % SOD.CHLORID 100 MG/100 ML PLAST..BAG IVPB SCH (08:00)
[2023-02-19 08:01] LABS: BILIRUBIN,TOTAL 0.6 mg/dL (0.2-1); PHOSPHOROUS 2.6 mg/dL (2.5-4.9); TOT PROT 5.4 g/dl (6.4-8.2)
[2023-02-19] MEDS ORDERED: KCL 10 MEQ IVPB 10 MEQ/100 ML INFUS.BAG IVPB SCH (08:15)
[2023-02-19] MEDS ORDERED: AZITHROMYCIN IVPB 500 MG/250 ML BAG IVPB SCH (10:00)
[2023-02-19] MEDS: CEFTRIAXONE 2 GM in DEXTROSE 5%-WATER 100 ML IVPB SCH (10:45)
[2023-02-19] MEDS: HEPARIN NA (PORCINE) 5,000 UNITS/ML 1ML VIAL SQ SCH ×2 (10:45→21:12)
[2023-02-19] MEDS: PANTOPRAZOLE SODIUM 40 MG VIAL IVPUSH SCH (10:45)
[2023-02-19] MEDS: KCL 10 MEQ IVPB 10 MEQ/100 ML INFUS.BAG IVPB SCH (12:31)
[2023-02-19] MEDS: methylPREDNISolone NA SUCC 40 MG/1 ML VIAL IVPUSH SCH (14:12)
[2023-02-19] MEDS ORDERED: MAGNESIUM SULF 50% (8.12 MEQ/2 ML-1 GM VIAL) IVPB STA (22:17)
[2023-02-19] MEDS ORDERED: POTASSIUM PHOSPHATE 30 MM in DEXTROSE 5%-WATER - 250 ML IVPB ONE (22:30)
[2023-02-20] MEDS ORDERED: FUROSEMIDE 40 MG/4 ML INJECTABLE VIAL IVPUSH ONE (05:00)
[2023-02-20 07:15] LABS: HEMATOCRIT 31.6 % (32.4-45.2); HEMOGLOBIN 10.7 GM/dL (10.7-15.3); MCH 29.3 pg (25.7-33.7); MCHC 33.8 g/dl (32.0-36.0); MEAN CELL VOLUME 86.6 fl (80-96); MEAN PLT VOLUME 8.1 fl (7.5-11.1); PLATELET COUNT 207 10^3/uL (134-434); RBC 3.65 M/mm3 (3.60-5.2); WHITE BLOOD COUNT 6.8 K/mm3 (4.0-10.0)
[2023-02-20 08:07] LABS: POTASSIUM 3.9 mmol/L (3.5-5.1)
[2023-02-20 08:09] LABS: ALBUMIN 2.6 g/dl (3.4-5.0); CALCIUM 8.3 mg/dL (8.5-10.1)
[2023-02-20 08:10] LABS: MAGNESIUM 2.7 mg/dL (1.8-2.4)
[2023-02-20 08:13] LABS: PHOSPHOROUS 5.2 mg/dL (2.5-4.9)
[2023-02-20 08:14] LABS: BILIRUBIN,TOTAL 0.5 mg/dL (0.2-1)
[2023-02-20 08:39] LABS: ARTERIAL BLD GAS O2 SATURATION 95.8 % (95-98); ARTERIAL BLOOD GAS BASE EXCESS 0 mmol/L (-2-2); ARTERIAL BLOOD GAS PO2 77.3 mmHg (80-100); ARTERIAL BLOOD GAS pH 7.426 (7.350-7.450)
[2023-02-20 08:42] LABS: ALLENS TEST POSITIVE
[2023-02-20] MEDS: HEPARIN NA (PORCINE) 5,000 UNITS/ML 1ML VIAL SQ SCH ×2 (10:00→21:18)
[2023-02-20] MEDS: CEFTRIAXONE 2 GM in DEXTROSE 5%-WATER 100 ML IVPB SCH (10:00)
[2023-02-20] MEDS: PANTOPRAZOLE SODIUM 40 MG VIAL IVPUSH SCH (10:01)
[2023-02-20] MEDS: methylPREDNISolone NA SUCC 40 MG/1 ML VIAL IVPUSH SCH (10:01)
[2023-02-20] MEDS: NOREPINEPHRINE 0.9 % NACL 8 MG/250 ML BAG IVPB SCH (13:28)
[2023-02-20] MEDS ORDERED: SODIUM CHLORIDE 250 ML IV ONE (14:30)
[2023-02-21] MEDS ORDERED: AMIODARONE IN DEXTROSE,ISO-OSM 150 MG/100 ML BAG IVPB ONE
[2023-02-21] MEDS ORDERED: AMIODARONE IN DEXTROSE,ISO-OSM 360 MG/200 ML BAG IV SCH (00:30)
[2023-02-21] MEDS ORDERED: DEXMEDETOMIDINE PREMIX 400 MCG/100 ML BAG IVPB SCH (00:45)
[2023-02-21] MEDS: AMIODARONE IN DEXTROSE,ISO-OSM 360 MG/200 ML BAG IV SCH ×2 (05:58→11:10)
[2023-02-21 07:17] LABS: HEMATOCRIT 35.8 % (32.4-45.2); HEMOGLOBIN 12.1 GM/dL (10.7-15.3); MCH 29.2 pg (25.7-33.7); MCHC 33.7 g/dl (32.0-36.0); MEAN CELL VOLUME 86.9 fl (80-96); MEAN PLT VOLUME 8.3 fl (7.5-11.1); PLATELET COUNT 274 10^3/uL (134-434); RBC 4.12 M/mm3 (3.60-5.2); RDW 14.2 % (11.6-15.6); WHITE BLOOD COUNT 11.8 K/mm3 (4.0-10.0)
[2023-02-21 07:45] LABS: POTASSIUM 3.8 mmol/L (3.5-5.1)
[2023-02-21 07:51] LABS: ALBUMIN 2.8 g/dl (3.4-5.0); BLOOD UREA NITROGEN 37.5 mg/dL (7-18); MAGNESIUM 2.6 mg/dL (1.8-2.4)
[2023-02-21 07:52] LABS: PHOSPHOROUS 2.7 mg/dL (2.5-4.9)
[2023-02-21 07:54] LABS: TOT PROT 6.4 g/dl (6.4-8.2)
[2023-02-21 07:55] LABS: BILIRUBIN,TOTAL 0.5 mg/dL (0.2-1)
[2023-02-21] MEDS: LACTATED RINGERS SOLUTION 1,000 ML/1,000 ML INFUS.BAG IV SCH (09:00)
[2023-02-21] MEDS: HEPARIN NA (PORCINE) 5,000 UNITS/ML 1ML VIAL SQ SCH ×2 (10:45→21:22)
[2023-02-21] MEDS: PANTOPRAZOLE SODIUM 40 MG VIAL IVPUSH SCH (10:45)
[2023-02-21] MEDS: CEFTRIAXONE 2 GM in DEXTROSE 5%-WATER 100 ML IVPB SCH (10:45)
[2023-02-21] MEDS: methylPREDNISolone NA SUCC 40 MG/1 ML VIAL IVPUSH SCH (10:45)
[2023-02-21] MEDS: METOPROLOL TARTRATE 5 MG/5 ML VIAL IVPB SCH ×3 (11:24→21:22)
[2023-02-21] MEDS ORDERED: FUROSEMIDE 40 MG/4 ML INJECTABLE VIAL IVPUSH ONE (12:28)
[2023-02-21 12:36] VITALS: BMI 29.9
[2023-02-21] MEDS ORDERED: FUROSEMIDE 40 MG/4 ML INJECTABLE VIAL ONE (13:41)
[2023-02-21] MEDS ORDERED: QUEtiapine FUMARATE 25 MG TABLET PO ONE (17:49)
[2023-02-21] MEDS ORDERED: ONDANSETRON 4 MG/2 ML VIAL IVPUSH ONE (17:51)
[2023-02-21] MEDS: DULoxetine HCL 30 MG CAPSULE.DR PO SCH (18:10)
[2023-02-21] MEDS: ALBUTEROL SO4 2.5/IPRATROPIUM 0.5 INH SOL 3 ML VIAL.NEB. NEB SCH (20:01)
[2023-02-21 22:50] LABS: PH,URINE 5.5 (5.0-8.0); URINE APPEARANCE CLEAR; URINE BILIRUBIN NEGATIVE (NEGATIVE); URINE COLOR YELLOW; URINE GLUCOSE (UA) NEGATIVE (NEGATIVE); URINE KETONE NEGATIVE (NEGATIVE); URINE LEUK ESTERASE NEGATIVE (NEGATIVE); URINE NITRITE NEGATIVE (NEGATIVE); URINE PROTEIN TRACE (NEGATIVE); URINE UROBILINOGEN 0.2 mg/dL (0.2-1.0)
[2023-02-22] MEDS: METOPROLOL TARTRATE 5 MG/5 ML VIAL IVPB SCH ×4 (03:57→22:12)
[2023-02-22] MEDS: ALBUTEROL SO4 2.5/IPRATROPIUM 0.5 INH SOL 3 ML VIAL.NEB. NEB SCH ×4 (07:42→20:30)
[2023-02-22 08:46] LABS: HEMATOCRIT 36.8 % (32.4-45.2); HEMOGLOBIN 12.5 GM/dL (10.7-15.3); MCH 29.5 pg (25.7-33.7); MCHC 33.8 g/dl (32.0-36.0); MEAN CELL VOLUME 87.3 fl (80-96); MEAN PLT VOLUME 8.4 fl (7.5-11.1); PLATELET COUNT 308 10^3/uL (134-434); POTASSIUM 3.7 mmol/L (3.5-5.1); RBC 4.22 M/mm3 (3.60-5.2); RDW 14.2 % (11.6-15.6); WHITE BLOOD COUNT 10.3 K/mm3 (4.0-10.0)
[2023-02-22 08:51] LABS: CALCIUM 8.8 mg/dL (8.5-10.1)
[2023-02-22 08:52] LABS: ALBUMIN 2.9 g/dl (3.4-5.0)
[2023-02-22 08:53] LABS: MAGNESIUM 2.5 mg/dL (1.8-2.4)
[2023-02-22 08:55] LABS: PHOSPHOROUS 2.2 mg/dL (2.5-4.9)
[2023-02-22 08:57] LABS: BILIRUBIN,TOTAL 0.7 mg/dL (0.2-1); TOT PROT 6.3 g/dl (6.4-8.2)
[2023-02-22] MEDS: DULoxetine HCL 30 MG CAPSULE.DR PO SCH (10:46)
[2023-02-22] MEDS: CEFTRIAXONE 2 GM in DEXTROSE 5%-WATER 100 ML IVPB SCH (10:48)
[2023-02-22] MEDS: methylPREDNISolone NA SUCC 40 MG/1 ML VIAL IVPUSH SCH (10:48)
[2023-02-22] MEDS: PANTOPRAZOLE SODIUM 40 MG VIAL IVPUSH SCH (10:48)
[2023-02-22] MEDS: HEPARIN NA (PORCINE) 5,000 UNITS/ML 1ML VIAL SQ SCH ×2 (10:48→22:23)
[2023-02-22] MEDS: LACTATED RINGERS SOLUTION 1,000 ML/1,000 ML INFUS.BAG IV SCH (12:27)
[2023-02-22] MEDS ORDERED: LACTATED RINGERS SOLUTION 1,000 ML/1,000 ML INFUS.BAG IV SCH (12:45)
[2023-02-22] MEDS: ACETAMINOPHEN 1000 MG/100 ML BAG IVPB PRN ×2 (13:41→22:23)
[2023-02-22] MEDS ORDERED: QUEtiapine FUMARATE 25 MG TABLET PO ONE (15:35)
[2023-02-23] MEDS: METOPROLOL TARTRATE 5 MG/5 ML VIAL IVPB SCH ×4 (04:50→21:47)
[2023-02-23] MEDS: ALBUTEROL SO4 2.5/IPRATROPIUM 0.5 INH SOL 3 ML VIAL.NEB. NEB SCH ×4 (07:49→20:45)
[2023-02-23] MEDS: DULoxetine HCL 30 MG CAPSULE.DR PO SCH (10:17)
[2023-02-23] MEDS: CEFTRIAXONE 2 GM in DEXTROSE 5%-WATER 100 ML IVPB SCH (10:17)
[2023-02-23] MEDS: methylPREDNISolone NA SUCC 40 MG/1 ML VIAL IVPUSH SCH (10:18)
[2023-02-23] MEDS: PANTOPRAZOLE SODIUM 40 MG VIAL IVPUSH SCH (10:18)
[2023-02-23] MEDS: HEPARIN NA (PORCINE) 5,000 UNITS/ML 1ML VIAL SQ SCH ×2 (10:19→21:46)
[2023-02-23 18:20] LABS: CHLORIDE 111 mmol/L (98-107); POTASSIUM 4.5 mmol/L (3.5-5.1); SODIUM 145 mmol/L (136-145)
[2023-02-23 18:21] LABS: CALCIUM 8.8 mg/dL (8.5-10.1)
[2023-02-23 18:22] LABS: ANION GAP 7 MMOL/L (8-16); BLOOD UREA NITROGEN 33.6 mg/dL (7-18); CO2 26 mmol/L (21-32); GLUCOSE,RANDOM 214 mg/dL (74-106); MAGNESIUM 2.1 mg/dL (1.8-2.4)
[2023-02-23 18:25] LABS: CREATININE 1.2 mg/dL (0.55-1.3)
[2023-02-23] MEDS: QUEtiapine FUMARATE 25 MG TABLET PO PRN (21:50)
[2023-02-24] MEDS: METOPROLOL TARTRATE 5 MG/5 ML VIAL IVPB SCH ×2 (05:45→14:44)
[2023-02-24] MEDS: ALBUTEROL SO4 2.5/IPRATROPIUM 0.5 INH SOL 3 ML VIAL.NEB. NEB SCH ×4 (08:35→20:39)
[2023-02-24] MEDS: CEFTRIAXONE 2 GM in DEXTROSE 5%-WATER 100 ML IVPB SCH (10:01)
[2023-02-24] MEDS: methylPREDNISolone NA SUCC 40 MG/1 ML VIAL IVPUSH SCH (10:01)
[2023-02-24] MEDS: PANTOPRAZOLE SODIUM 40 MG VIAL IVPUSH SCH (10:01)
[2023-02-24] MEDS: HEPARIN NA (PORCINE) 5,000 UNITS/ML 1ML VIAL SQ SCH ×2 (10:01→22:28)
[2023-02-24] MEDS: DULoxetine HCL 30 MG CAPSULE.DR PO SCH (10:02)
[2023-02-24] MEDS: metoPROLOL SUCCINATE 25 MG TAB.SR.24H (FP) PO SCH (15:34)
[2023-02-24] MEDS: QUEtiapine FUMARATE 25 MG TABLET PO PRN (22:24)
[2023-02-25] MEDS: ALBUTEROL SO4 2.5/IPRATROPIUM 0.5 INH SOL 3 ML VIAL.NEB. NEB SCH ×4 (07:33→20:35)
[2023-02-25] MEDS: CEFTRIAXONE 2 GM in DEXTROSE 5%-WATER 100 ML IVPB SCH (09:40)
[2023-02-25] MEDS: HEPARIN NA (PORCINE) 5,000 UNITS/ML 1ML VIAL SQ SCH ×2 (09:41→21:22)
[2023-02-25] MEDS: DULoxetine HCL 30 MG CAPSULE.DR PO SCH (09:41)
[2023-02-25] MEDS: methylPREDNISolone NA SUCC 40 MG/1 ML VIAL IVPUSH SCH (09:41)
[2023-02-25] MEDS: PANTOPRAZOLE SODIUM 40 MG VIAL IVPUSH SCH (09:41)
[2023-02-25] MEDS: metoPROLOL SUCCINATE 25 MG TAB.SR.24H (FP) PO SCH (09:41)
[2023-02-25] MEDS: SACUBITRIL/VALSARTAN 24 MG-26 MG TABLET PO SCH ×2 (16:49→21:22)
[2023-02-25] MEDS ORDERED: INSULIN (NOVOLOG) ASPART 100 UNITS/ML 10ML VIAL ONE ×2 (17:03→21:21)
[2023-02-25] MEDS: INSULIN SLIDING SCALE (NOVOLOG) 1 VIAL SQ SCH ×2 (17:22→21:22)
[2023-02-26] MEDS: QUEtiapine FUMARATE 25 MG TABLET PO PRN ×2 (05:52→22:02)
[2023-02-26] MEDS ORDERED: INSULIN (NOVOLOG) ASPART 100 UNITS/ML 10ML VIAL ONE ×4 (06:00→22:01)
[2023-02-26] MEDS: INSULIN SLIDING SCALE (NOVOLOG) 1 VIAL SQ SCH ×4 (06:26→22:01)
[2023-02-26] MEDS: ALBUTEROL SO4 2.5/IPRATROPIUM 0.5 INH SOL 3 ML VIAL.NEB. NEB SCH ×4 (07:25→20:36)
[2023-02-26] MEDS: SACUBITRIL/VALSARTAN 24 MG-26 MG TABLET PO SCH ×2 (09:37→21:50)
[2023-02-26] MEDS: HEPARIN NA (PORCINE) 5,000 UNITS/ML 1ML VIAL SQ SCH ×2 (09:37→21:50)
[2023-02-26] MEDS: metoPROLOL SUCCINATE 25 MG TAB.SR.24H (FP) PO SCH (09:37)
[2023-02-26] MEDS: DULoxetine HCL 30 MG CAPSULE.DR PO SCH (09:37)
[2023-02-26] MEDS: PANTOPRAZOLE SODIUM 40 MG VIAL IVPUSH SCH (09:38)
[2023-02-26] MEDS: CEFTRIAXONE 2 GM in DEXTROSE 5%-WATER 100 ML IVPB SCH (09:38)
[2023-02-26] MEDS: methylPREDNISolone NA SUCC 40 MG/1 ML VIAL IVPUSH SCH (09:38)
[2023-02-27] MEDS ORDERED: INSULIN (NOVOLOG) ASPART 100 UNITS/ML 10ML VIAL ONE ×4 (06:36→21:21)
[2023-02-27] MEDS: INSULIN SLIDING SCALE (NOVOLOG) 1 VIAL SQ SCH ×4 (07:11→21:22)
[2023-02-27] MEDS: ALBUTEROL SO4 2.5/IPRATROPIUM 0.5 INH SOL 3 ML VIAL.NEB. NEB SCH ×4 (07:45→20:28)
[2023-02-27] MEDS: SACUBITRIL/VALSARTAN 24 MG-26 MG TABLET PO SCH ×2 (09:28→21:13)
[2023-02-27] MEDS: PANTOPRAZOLE 40 MG TABLET PO SCH (09:28)
[2023-02-27] MEDS: HEPARIN NA (PORCINE) 5,000 UNITS/ML 1ML VIAL SQ SCH ×2 (09:28→21:14)
[2023-02-27] MEDS: CEFTRIAXONE 2 GM in DEXTROSE 5%-WATER 100 ML IVPB SCH (09:28)
[2023-02-27] MEDS: DULoxetine HCL 30 MG CAPSULE.DR PO SCH (09:28)
[2023-02-27] MEDS: metoPROLOL SUCCINATE 25 MG TAB.SR.24H (FP) PO SCH (09:28)
[2023-02-27] MEDS: QUEtiapine FUMARATE 25 MG TABLET PO PRN (21:13)
[2023-02-28] MEDS: INSULIN SLIDING SCALE (NOVOLOG) 1 VIAL SQ SCH ×4 (06:02→21:48)
[2023-02-28] MEDS: ALBUTEROL SO4 2.5/IPRATROPIUM 0.5 INH SOL 3 ML VIAL.NEB. NEB SCH ×4 (07:30→20:38)
[2023-02-28 10:51] VITALS: RESP 18
[2023-02-28] MEDS: CEFTRIAXONE 2 GM in DEXTROSE 5%-WATER 100 ML IVPB SCH (10:51)
[2023-02-28] MEDS: SACUBITRIL/VALSARTAN 24 MG-26 MG TABLET PO SCH ×2 (10:51→21:19)
[2023-02-28] MEDS: metoPROLOL SUCCINATE 25 MG TAB.SR.24H (FP) PO SCH (10:52)
[2023-02-28] MEDS: DULoxetine HCL 30 MG CAPSULE.DR PO SCH (10:52)
[2023-02-28] MEDS: PANTOPRAZOLE 40 MG TABLET PO SCH (10:52)
[2023-02-28] MEDS: HEPARIN NA (PORCINE) 5,000 UNITS/ML 1ML VIAL SQ SCH ×2 (10:52→21:19)
[2023-02-28] MEDS ORDERED: INSULIN (NOVOLOG) ASPART 100 UNITS/ML 10ML VIAL ONE ×4 (12:12→21:47)
[2023-02-28] MEDS: QUEtiapine FUMARATE 25 MG TABLET PO PRN (21:19)
[2023-03-01] MEDS ORDERED: INSULIN (NOVOLOG) ASPART 100 UNITS/ML 10ML VIAL ONE (06:21)
[2023-03-01] MEDS: INSULIN SLIDING SCALE (NOVOLOG) 1 VIAL SQ SCH (07:21)
[2023-03-01] MEDS: ALBUTEROL SO4 2.5/IPRATROPIUM 0.5 INH SOL 3 ML VIAL.NEB. NEB SCH (07:23)
[2023-03-01 09:08] VITALS: BP 111/54; PULSE 94; TEMP 98.3
[2023-03-01] MEDS: PANTOPRAZOLE 40 MG TABLET PO SCH (10:17)
[2023-03-01] MEDS: SACUBITRIL/VALSARTAN 24 MG-26 MG TABLET PO SCH (10:17)
[2023-03-01] MEDS: HEPARIN NA (PORCINE) 5,000 UNITS/ML 1ML VIAL SQ SCH (10:18)
[2023-03-01] MEDS: CEFTRIAXONE 2 GM in DEXTROSE 5%-WATER 100 ML IVPB SCH (10:18)
[2023-03-01] MEDS: metoPROLOL SUCCINATE 25 MG TAB.SR.24H (FP) PO SCH (10:18)
[2023-03-01] MEDS: DULoxetine HCL 30 MG CAPSULE.DR PO SCH (10:18)
== END 2023-03-01 13:52 | DRG 871 ==
LOC: JER 04:42 → JERBED 06:32 → JICU 09:13 → J4W 02-22 12:17
PROVIDERS: ADMIT Internal Medicine Pulmonary Disease; ATTEND Family Medicine
PROC: 05H633Z Insertion of Infusion Device into Left Subclavian Vein, Percutaneous Approach (ICD-10-PCS; principal; 2023-02-17)
PROC: 4A133B1 Monitoring of Arterial Pressure, Peripheral, Percutaneous Approach (ICD-10-PCS; 2023-02-17)
PROC: 4A133J1 Monitoring of Arterial Pulse, Peripheral, Percutaneous Approach (ICD-10-PCS; 2023-02-17)
PROC: 0BH17EZ Insertion of Endotracheal Airway into Trachea, Via Natural or Artificial Opening (ICD-10-PCS; 2023-02-17)
PROC: 5A1945Z Respiratory Ventilation, 24-96 Consecutive Hours (ICD-10-PCS; 2023-02-17)
DX: A40.9 Streptococcal sepsis, unspecified (principal); J13 Pneumonia due to Streptococcus pneumoniae; J96.01 Acute respiratory failure with hypoxia; R65.21 Severe sepsis with septic shock; N17.9 Acute kidney failure, unspecified; I24.8 Other forms of acute ischemic heart disease; I13.0 Hypertensive heart and chronic kidney disease with heart failure and stage 1 through stage 4 chronic kidney disease, or unspecified chronic kidney disease; I50.20 Unspecified systolic (congestive) heart failure; E78.5 Hyperlipidemia, unspecified; I25.2 Old myocardial infarction; J44.9 Chronic obstructive pulmonary disease, unspecified; R05.9 Cough, unspecified; D64.9 Anemia, unspecified; D72.829 Elevated white blood cell count, unspecified; I44.7 Left bundle-branch block, unspecified; R00.0 Tachycardia, unspecified; I95.9 Hypotension, unspecified; K57.90 Diverticulosis of intestine, part unspecified, without perforation or abscess without bleeding; F41.8 Other specified anxiety disorders; E66.8 Other obesity; Z68.29 Body mass index [BMI] 29.0-29.9, adult; R53.1 Weakness; R79.89 Other specified abnormal findings of blood chemistry; I25.119 Atherosclerotic heart disease of native coronary artery with unspecified angina pectoris; R91.8 Other nonspecific abnormal finding of lung field; E11.22 Type 2 diabetes mellitus with diabetic chronic kidney disease; N18.9 Chronic kidney disease, unspecified; Z95.5 Presence of coronary angioplasty implant and graft
CPT/HCPCS: 0241U-QW; 36415; 36600; 71045-TC-FY; 71250-TC; 80048; 80053; 81003; 82550; 82553; 82803; 82962; 83605; 83735; 83880; 84100; 84484; 85025; 85027; 86713; 87040; 87070; 87086; 87205; 87899; 93005; 93010; 93306-TC; 93970-TC; 94002; 94640; 94761; 97116-GP; 97163-GP; 99285-25; C9803-CS; J0282; J1644; U0003; U0005

== ENCOUNTER 2023-06-16 23:21 | Inpatient (IN) | payer OTHER ==
[2023-06-16] MEDS ORDERED: ALBUTEROL SO4 2.5/IPRATROPIUM 0.5 INH SOL 3 ML VIAL.NEB. NEB ONE (23:30)
[2023-06-16 23:35] VITALS: BMI 29.0
[2023-06-16] MEDS ORDERED: methylPREDNISolone NA SUCC 125 MG/2 ML VIAL IVPUSH ONE (23:51)
[2023-06-16] MEDS ORDERED: MAGNESIUM SULFATE IN WATER 2 GM/50 ML IVPB IVPB ONE (23:57)
[2023-06-16] MEDS ORDERED: CEFTRIAXONE 1 GM in DEXTROSE 5%-WATER - 50 ML IVPB ONE (23:59)
[2023-06-16] MEDS ORDERED: AZITHROMYCIN IVPB 500 MG in DEXTROSE 5%-WATER - 250 ML IVPB ONE (23:59)
[2023-06-17] MEDS ORDERED: methylPREDNISolone NA SUCC 125 MG/2 ML VIAL ONE (00:42)
[2023-06-17] MEDS ORDERED: FUROSEMIDE 40 MG/4 ML INJECTABLE VIAL IVPUSH ONE ×4 (00:58→16:00)
[2023-06-17 01:00] LABS: BASO % 0.3 % (0-2.0); EOS % 0.6 % (0-4.5); HEMOGLOBIN 12.1 GM/dL (10.7-15.3); LYMPH % 10.5 % (8-40); MCH 28.3 pg (25.7-33.7); MCHC 31.8 g/dl (32.0-36.0); MEAN CELL VOLUME 89.1 fl (80-96); MEAN PLT VOLUME 7.7 fl (7.5-11.1); MONO % 4.1 % (3.8-10.2); NEUT % 84.5 % (42.8-82.8); PLATELET COUNT 307 10^3/uL (134-434); RBC 4.26 M/mm3 (3.60-5.2); RDW 15.6 % (11.6-15.6); WHITE BLOOD COUNT 14.1 K/mm3 (4.0-10.0)
[2023-06-17] MEDS ORDERED: MAGNESIUM SULFATE IN WATER 2 GM/50 ML IVPB IVPB ONE (01:06)
[2023-06-17 01:11] LABS: INR 1.04 (0.83-1.09); PROTHROMBIN TIME (PATIENT) 12.1 SEC (9.7-13.0)
[2023-06-17 01:20] LABS: POTASSIUM 4.5 mmol/L (3.5-5.1)
[2023-06-17 01:21] LABS: CALCIUM 8.8 mg/dL (8.5-10.1)
[2023-06-17 01:23] LABS: ALBUMIN 3.4 g/dl (3.4-5.0); BLOOD UREA NITROGEN 19.9 mg/dL (7-18); MAGNESIUM 1.7 mg/dL (1.8-2.4)
[2023-06-17 01:25] LABS: CREATININE 1.4 mg/dL (0.55-1.3); PHOSPHOROUS 4.8 mg/dL (2.5-4.9)
[2023-06-17 01:26] LABS: BILIRUBIN,TOTAL 0.7 mg/dL (0.2-1); TOT PROT 6.8 g/dl (6.4-8.2)
[2023-06-17 01:30] LABS: N-TERMINAL BNP 7795.4 pg/ml (5-450)
[2023-06-17 01:37] LABS: VENOUS BASE EXCESS -8.9 mmol/L (-2-2); VENOUS PCO2 44.4 mmHg (38-52); VENOUS PH 7.231 (7.310-7.410)
[2023-06-17] MEDS ORDERED: CEFTRIAXONE 1 GM/50 ML BAG ONE (01:50)
[2023-06-17] MEDS ORDERED: FUROSEMIDE 40 MG/4 ML INJECTABLE VIAL ONE (01:51)
[2023-06-17] MEDS ORDERED: AZITHROMYCIN IVPB 500 MG/250 ML BAG IVPB ONE (02:31)
[2023-06-17] MEDS ORDERED: PROCHLORPERAZINE INJECTION 10 MG/2 ML VIAL IVPB ONE (03:17)
[2023-06-17] MEDS ORDERED: FAMOTIDINE 20 MG/50 ML IVPB 20 MG/50 ML MG IVPB ONE ×2 (03:21→03:22)
[2023-06-17] MEDS ORDERED: ACETAMINOPHEN 1000 MG/100 ML BAG IVPB ONE (03:21)
[2023-06-17] MEDS ORDERED: PROCHLORPERAZINE INJECTION 10 MG/2 ML VIAL ONE (03:25)
[2023-06-17] MEDS ORDERED: ACETAMINOPHEN INJECTION 100 ML IVPB ONE (03:54)
[2023-06-17] MEDS ORDERED: ALBUTEROL SO4 2.5/IPRATROPIUM 0.5 INH SOL 3 ML VIAL.NEB. NEB PRN (06:16)
[2023-06-17] MEDS ORDERED: MAGNESIUM SULF 50% (8.12 MEQ/2 ML-1 GM VIAL) IVPB ONE (06:30)
[2023-06-17 06:40] LABS: ARTERIAL BLD GAS O2 SATURATION 91.1 % (95-98); ARTERIAL BLOOD GAS BASE EXCESS -15.1 mmol/L (-2-2); ARTERIAL BLOOD GAS PO2 81.9 mmHg (80-100)
[2023-06-17 06:41] LABS: ALLENS TEST POSITIVE
[2023-06-17] MEDS ORDERED: TRIMETHOBENZAMIDE HCL 200MG/2ML INJ IM ONE (06:45)
[2023-06-17] MEDS ORDERED: TRIMETHOBENZAMIDE HCL 200MG/2ML INJ IM PRN (07:02)
[2023-06-17 07:43] LABS: ARTERIAL BLOOD GAS pH 7.079 (7.350-7.450)
[2023-06-17 08:37] LABS: ARTERIAL BLD GAS O2 SATURATION 96.8 % (95-98); ARTERIAL BLOOD GAS BASE EXCESS -9.3 mmol/L (-2-2); ARTERIAL BLOOD GAS PO2 96.8 mmHg (80-100); ARTERIAL BLOOD GAS pH 7.293 (7.350-7.450)
[2023-06-17 08:38] LABS: ALLENS TEST POSITIVE
[2023-06-17 08:39] LABS: VENT MODE S/T
[2023-06-17 10:01] LABS: POTASSIUM 4.9 mmol/L (3.5-5.1)
[2023-06-17 10:02] LABS: ALBUMIN 3.4 g/dl (3.4-5.0); CALCIUM 8.7 mg/dL (8.5-10.1)
[2023-06-17 10:04] LABS: BLOOD UREA NITROGEN 24.3 mg/dL (7-18); MAGNESIUM 2.2 mg/dL (1.8-2.4)
[2023-06-17 10:06] LABS: CREATININE 1.5 mg/dL (0.55-1.3)
[2023-06-17 10:08] LABS: BILIRUBIN,TOTAL 0.4 mg/dL (0.2-1); TOT PROT 6.8 g/dl (6.4-8.2)
[2023-06-17] MEDS: CHOLECALCIFEROL (VIT D3) 1,000 UNIT (25 MCG) TABLET PO SCH (10:55)
[2023-06-17] MEDS: ASCORBIC ACID 500 MG TABLET (FP) PO SCH (10:56)
[2023-06-17] MEDS: SACUBITRIL/VALSARTAN 24 MG-26 MG TABLET PO SCH ×2 (10:56→22:14)
[2023-06-17] MEDS: metoPROLOL SUCCINATE 25 MG TAB.SR.24H (FP) PO SCH (10:56)
[2023-06-17] MEDS: PANTOPRAZOLE 40 MG TABLET PO SCH (10:56)
[2023-06-17] MEDS: ASPIRIN 81 MG CHEWABLE TABLETS PO SCH (10:57)
[2023-06-17] MEDS: HEPARIN NA (PORCINE) 5,000 UNITS/ML 1ML VIAL SQ SCH ×2 (10:57→22:15)
[2023-06-17 11:45] LABS: BASO % 0.5 % (0-2.0); HEMOGLOBIN 12.2 GM/dL (10.7-15.3); LYMPH % 5.9 % (8-40); MCH 28.4 pg (25.7-33.7); MCHC 32.1 g/dl (32.0-36.0); MEAN CELL VOLUME 88.4 fl (80-96); MEAN PLT VOLUME 8.1 fl (7.5-11.1); MONO % 4.9 % (3.8-10.2); NEUT % 88.7 % (42.8-82.8); PLATELET COUNT 284 10^3/uL (134-434); RDW 15.3 % (11.6-15.6); WHITE BLOOD COUNT 12.9 K/mm3 (4.0-10.0)
[2023-06-17 18:29] LABS: EPI CELLS 11 /uL (0-25.1); HYALINE CASTS 2 /uL (0-3.1); URINE APPEARANCE CLEAR; URINE BACTERIA 21 /uL (0-1359); URINE BILIRUBIN NEGATIVE (NEGATIVE); URINE COLOR YELLOW; URINE GLUCOSE (UA) NEGATIVE (NEGATIVE); URINE KETONE NEGATIVE (NEGATIVE); URINE LEUK ESTERASE 1+ (NEGATIVE); URINE NITRITE NEGATIVE (NEGATIVE); URINE PROTEIN NEGATIVE (NEGATIVE); URINE RBC 10 /uL (0-23.9); URINE UROBILINOGEN 0.2 mg/dL (0.2-1.0); URINE WBC 25 /uL (0-25.8)
[2023-06-18 07:09] LABS: EOS % 0.2 % (0-4.5); HEMATOCRIT 31.6 % (32.4-45.2); HEMOGLOBIN 10.1 GM/dL (10.7-15.3); MCH 28.3 pg (25.7-33.7); MEAN CELL VOLUME 88.4 fl (80-96); MEAN PLT VOLUME 8.8 fl (7.5-11.1); MONO % 6.5 % (3.8-10.2); NEUT % 83.3 % (42.8-82.8); PLATELET COUNT 268 10^3/uL (134-434); RBC 3.58 M/mm3 (3.60-5.2); RDW 15.1 % (11.6-15.6); WHITE BLOOD COUNT 12.7 K/mm3 (4.0-10.0)
[2023-06-18 07:44] LABS: POTASSIUM 4.2 mmol/L (3.5-5.1)
[2023-06-18 07:46] LABS: CALCIUM 8.5 mg/dL (8.5-10.1)
[2023-06-18 07:47] LABS: ALBUMIN 3.1 g/dl (3.4-5.0); BLOOD UREA NITROGEN 31.6 mg/dL (7-18)
[2023-06-18 07:50] LABS: CREATININE 1.6 mg/dL (0.55-1.3)
[2023-06-18 07:51] LABS: BILIRUBIN,TOTAL 0.5 mg/dL (0.2-1); TOT PROT 5.6 g/dl (6.4-8.2)
[2023-06-18] MEDS: AZITHROMYCIN IVPB 500 MG/250 ML BAG IVPB SCH (10:35)
[2023-06-18] MEDS: ASCORBIC ACID 500 MG TABLET (FP) PO SCH (10:59)
[2023-06-18] MEDS: SACUBITRIL/VALSARTAN 24 MG-26 MG TABLET PO SCH ×2 (10:59→21:46)
[2023-06-18] MEDS: metoPROLOL SUCCINATE 25 MG TAB.SR.24H (FP) PO SCH (10:59)
[2023-06-18] MEDS: PANTOPRAZOLE 40 MG TABLET PO SCH (10:59)
[2023-06-18] MEDS: ASPIRIN 81 MG CHEWABLE TABLETS PO SCH (10:59)
[2023-06-18] MEDS: FUROSEMIDE 40 MG/4 ML INJECTABLE VIAL IVPUSH SCH (10:59)
[2023-06-18] MEDS: CHOLECALCIFEROL (VIT D3) 1,000 UNIT (25 MCG) TABLET PO SCH (10:59)
[2023-06-18] MEDS: CEFTRIAXONE 1 GM in DEXTROSE 5%-WATER - 50 ML IVPB SCH (11:00)
[2023-06-18] MEDS: HEPARIN NA (PORCINE) 5,000 UNITS/ML 1ML VIAL SQ SCH ×2 (11:05→21:46)
[2023-06-18] MEDS: SPIRONOLACTONE 25 MG TABLET PO SCH (12:36)
[2023-06-18] MEDS: POLYETHYLENE GLYCOL (HEALTHYLAX) 3350 17 GM PACKET PO SCH (21:45)
[2023-06-19] MEDS: CHOLECALCIFEROL (VIT D3) 1,000 UNIT (25 MCG) TABLET PO SCH (10:18)
[2023-06-19] MEDS: metoPROLOL SUCCINATE 25 MG TAB.SR.24H (FP) PO SCH (10:18)
[2023-06-19] MEDS: FUROSEMIDE 40 MG/4 ML INJECTABLE VIAL IVPUSH SCH (10:19)
[2023-06-19] MEDS: HEPARIN NA (PORCINE) 5,000 UNITS/ML 1ML VIAL SQ SCH ×2 (10:19→21:03)
[2023-06-19] MEDS: PANTOPRAZOLE 40 MG TABLET PO SCH (10:19)
[2023-06-19] MEDS: SPIRONOLACTONE 25 MG TABLET PO SCH (10:20)
[2023-06-19] MEDS: ASCORBIC ACID 500 MG TABLET (FP) PO SCH (10:43)
[2023-06-19] MEDS: POLYETHYLENE GLYCOL (HEALTHYLAX) 3350 17 GM PACKET PO SCH ×3 (10:55→21:03)
[2023-06-19] MEDS: ASPIRIN 81 MG CHEWABLE TABLETS PO SCH (10:56)
[2023-06-19] MEDS: SACUBITRIL/VALSARTAN 24 MG-26 MG TABLET PO SCH ×2 (10:56→21:03)
[2023-06-19] MEDS: AZITHROMYCIN IVPB 500 MG/250 ML BAG IVPB SCH (11:07)
[2023-06-19] MEDS: CEFTRIAXONE 1 GM in DEXTROSE 5%-WATER - 50 ML IVPB SCH (12:18)
[2023-06-20] MEDS: POLYETHYLENE GLYCOL (HEALTHYLAX) 3350 17 GM PACKET PO SCH ×3 (05:29→23:51)
[2023-06-20] MEDS: SPIRONOLACTONE 25 MG TABLET PO SCH ×2 (10:55→17:33)
[2023-06-20] MEDS: metoPROLOL SUCCINATE 25 MG TAB.SR.24H (FP) PO SCH ×2 (10:56→17:32)
[2023-06-20] MEDS: CEFTRIAXONE 1 GM in DEXTROSE 5%-WATER - 50 ML IVPB SCH (11:00)
[2023-06-20] MEDS: FUROSEMIDE 40 MG/4 ML INJECTABLE VIAL IVPUSH SCH (11:04)
[2023-06-20] MEDS: HEPARIN NA (PORCINE) 5,000 UNITS/ML 1ML VIAL SQ SCH ×2 (11:06→23:51)
[2023-06-20] MEDS: ASCORBIC ACID 500 MG TABLET (FP) PO SCH (11:07)
[2023-06-20] MEDS: ASPIRIN 81 MG CHEWABLE TABLETS PO SCH (11:07)
[2023-06-20] MEDS: PANTOPRAZOLE 40 MG TABLET PO SCH (11:07)
[2023-06-20] MEDS: AZITHROMYCIN IVPB 500 MG/250 ML BAG IVPB SCH ×2 (11:08→11:23)
[2023-06-20] MEDS: CHOLECALCIFEROL (VIT D3) 1,000 UNIT (25 MCG) TABLET PO SCH (11:08)
[2023-06-20] MEDS: SACUBITRIL/VALSARTAN 24 MG-26 MG TABLET PO SCH ×2 (11:08→23:51)
[2023-06-20] MEDS ORDERED: MAGNESIUM CITRATE 300 ML BOTTLE PO PRN (15:40)
[2023-06-21] MEDS: POLYETHYLENE GLYCOL (HEALTHYLAX) 3350 17 GM PACKET PO SCH ×3 (06:54→22:38)
[2023-06-21] MEDS: CEFTRIAXONE 1 GM in DEXTROSE 5%-WATER - 50 ML IVPB SCH (10:29)
[2023-06-21] MEDS: AZITHROMYCIN IVPB 500 MG/250 ML BAG IVPB SCH ×2 (10:29→10:43)
[2023-06-21] MEDS: PANTOPRAZOLE 40 MG TABLET PO SCH (10:30)
[2023-06-21] MEDS: SACUBITRIL/VALSARTAN 24 MG-26 MG TABLET PO SCH ×2 (10:30→22:37)
[2023-06-21] MEDS: FUROSEMIDE 40 MG/4 ML INJECTABLE VIAL IVPUSH SCH (10:30)
[2023-06-21] MEDS: ASCORBIC ACID 500 MG TABLET (FP) PO SCH (10:30)
[2023-06-21] MEDS: ASPIRIN 81 MG CHEWABLE TABLETS PO SCH (10:30)
[2023-06-21] MEDS: SPIRONOLACTONE 25 MG TABLET PO SCH (10:30)
[2023-06-21] MEDS: CHOLECALCIFEROL (VIT D3) 1,000 UNIT (25 MCG) TABLET PO SCH (10:30)
[2023-06-21] MEDS: HEPARIN NA (PORCINE) 5,000 UNITS/ML 1ML VIAL SQ SCH ×2 (10:30→22:39)
[2023-06-21] MEDS: metoPROLOL SUCCINATE 25 MG TAB.SR.24H (FP) PO SCH (10:31)
[2023-06-21 11:42] LABS: BASO % 0.8 % (0-2.0); EOS % 2.6 % (0-4.5); HEMATOCRIT 38.4 % (32.4-45.2); HEMOGLOBIN 12.4 GM/dL (10.7-15.3); LYMPH % 14.1 % (8-40); MCH 28.7 pg (25.7-33.7); MCHC 32.2 g/dl (32.0-36.0); MEAN PLT VOLUME 8.9 fl (7.5-11.1); NEUT % 70.5 % (42.8-82.8); PLATELET COUNT 261 10^3/uL (134-434); RBC 4.32 M/mm3 (3.60-5.2); WHITE BLOOD COUNT 8.9 K/mm3 (4.0-10.0)
[2023-06-21 12:07] LABS: POTASSIUM 4.5 mmol/L (3.5-5.1)
[2023-06-21 12:11] LABS: ALBUMIN 3.1 g/dl (3.4-5.0); BLOOD UREA NITROGEN 26.3 mg/dL (7-18)
[2023-06-21 12:14] LABS: CREATININE 1.3 mg/dL (0.55-1.3)
[2023-06-21 12:16] LABS: BILIRUBIN,TOTAL 0.5 mg/dL (0.2-1); TOT PROT 6.3 g/dl (6.4-8.2)
[2023-06-22] MEDS: POLYETHYLENE GLYCOL (HEALTHYLAX) 3350 17 GM PACKET PO SCH ×3 (05:40→22:03)
[2023-06-22 07:59] LABS: POTASSIUM 4.2 mmol/L (3.5-5.1)
[2023-06-22 08:29] LABS: CALCIUM 8.5 mg/dL (8.5-10.1)
[2023-06-22 08:30] LABS: ALBUMIN 2.9 g/dl (3.4-5.0); BLOOD UREA NITROGEN 28.3 mg/dL (7-18)
[2023-06-22 08:33] LABS: CREATININE 1.3 mg/dL (0.55-1.3)
[2023-06-22 08:34] LABS: TOT PROT 5.8 g/dl (6.4-8.2)
[2023-06-22 08:35] LABS: BILIRUBIN,TOTAL 0.4 mg/dL (0.2-1)
[2023-06-22] MEDS: CEFTRIAXONE 1 GM in DEXTROSE 5%-WATER - 50 ML IVPB SCH (09:07)
[2023-06-22] MEDS: FUROSEMIDE 40 MG/4 ML INJECTABLE VIAL IVPUSH SCH (09:08)
[2023-06-22] MEDS: HEPARIN NA (PORCINE) 5,000 UNITS/ML 1ML VIAL SQ SCH ×2 (09:08→22:01)
[2023-06-22] MEDS: CHOLECALCIFEROL (VIT D3) 1,000 UNIT (25 MCG) TABLET PO SCH (09:10)
[2023-06-22] MEDS: SACUBITRIL/VALSARTAN 24 MG-26 MG TABLET PO SCH ×2 (09:10→22:01)
[2023-06-22] MEDS: ASCORBIC ACID 500 MG TABLET (FP) PO SCH (09:10)
[2023-06-22] MEDS: metoPROLOL SUCCINATE 25 MG TAB.SR.24H (FP) PO SCH (09:10)
[2023-06-22] MEDS: ASPIRIN 81 MG CHEWABLE TABLETS PO SCH (09:10)
[2023-06-22] MEDS: SPIRONOLACTONE 25 MG TABLET PO SCH (09:10)
[2023-06-22] MEDS: PANTOPRAZOLE 40 MG TABLET PO SCH (09:10)
[2023-06-23] MEDS: POLYETHYLENE GLYCOL (HEALTHYLAX) 3350 17 GM PACKET PO SCH ×3 (06:58→22:52)
[2023-06-23] MEDS: SACUBITRIL/VALSARTAN 24 MG-26 MG TABLET PO SCH ×2 (10:00→22:53)
[2023-06-23] MEDS: HEPARIN NA (PORCINE) 5,000 UNITS/ML 1ML VIAL SQ SCH ×2 (10:00→22:53)
[2023-06-23] MEDS: FUROSEMIDE 40 MG/4 ML INJECTABLE VIAL IVPUSH SCH (10:05)
[2023-06-23] MEDS: CHOLECALCIFEROL (VIT D3) 1,000 UNIT (25 MCG) TABLET PO SCH (10:06)
[2023-06-23] MEDS: ASCORBIC ACID 500 MG TABLET (FP) PO SCH (10:06)
[2023-06-23] MEDS: PANTOPRAZOLE 40 MG TABLET PO SCH (10:06)
[2023-06-23] MEDS: ASPIRIN 81 MG CHEWABLE TABLETS PO SCH (10:06)
[2023-06-23] MEDS: CEFTRIAXONE 1 GM in DEXTROSE 5%-WATER - 50 ML IVPB SCH (10:06)
[2023-06-23] MEDS: SPIRONOLACTONE 25 MG TABLET PO SCH (15:58)
[2023-06-23] MEDS: metoPROLOL SUCCINATE 25 MG TAB.SR.24H (FP) PO SCH (15:58)
[2023-06-24] MEDS: POLYETHYLENE GLYCOL (HEALTHYLAX) 3350 17 GM PACKET PO SCH ×3 (08:20→21:59)
[2023-06-24] MEDS: FUROSEMIDE 40 MG/4 ML INJECTABLE VIAL IVPUSH SCH (10:12)
[2023-06-24] MEDS: ASCORBIC ACID 500 MG TABLET (FP) PO SCH (10:12)
[2023-06-24] MEDS: CEFTRIAXONE 1 GM in DEXTROSE 5%-WATER - 50 ML IVPB SCH (10:12)
[2023-06-24] MEDS: CHOLECALCIFEROL (VIT D3) 1,000 UNIT (25 MCG) TABLET PO SCH (10:13)
[2023-06-24] MEDS: ASPIRIN 81 MG CHEWABLE TABLETS PO SCH (10:13)
[2023-06-24] MEDS: PANTOPRAZOLE 40 MG TABLET PO SCH (10:13)
[2023-06-24] MEDS: metoPROLOL SUCCINATE 25 MG TAB.SR.24H (FP) PO SCH (10:13)
[2023-06-24] MEDS ORDERED: GLYCERIN 1 RECTAL SUPPOSITORY, ADULT RC PRN (14:00)
[2023-06-24] MEDS ORDERED: DOCUSATE SODIUM 100 MG CAPSULE (FP) PO PRN (14:00)
[2023-06-24] MEDS ORDERED: DOCUSATE SODIUM 100 MG CAPSULE (FP) PO ONE (14:30)
[2023-06-24] MEDS: SACUBITRIL/VALSARTAN 24 MG-26 MG TABLET PO SCH ×2 (14:40→21:59)
[2023-06-24] MEDS: SPIRONOLACTONE 25 MG TABLET PO SCH (14:40)
[2023-06-24] MEDS: HEPARIN NA (PORCINE) 5,000 UNITS/ML 1ML VIAL SQ SCH (21:59)
[2023-06-25] MEDS: POLYETHYLENE GLYCOL (HEALTHYLAX) 3350 17 GM PACKET PO SCH ×3 (06:21→21:26)
[2023-06-25 08:15] LABS: POTASSIUM 4.7 mmol/L (3.5-5.1)
[2023-06-25 08:23] LABS: CALCIUM 8.9 mg/dL (8.5-10.1)
[2023-06-25 08:27] LABS: CREATININE 1.5 mg/dL (0.55-1.3)
[2023-06-25 08:28] LABS: BILIRUBIN,TOTAL 0.3 mg/dL (0.2-1)
[2023-06-25 08:35] LABS: HEMATOCRIT 34.7 % (32.4-45.2); HEMOGLOBIN 11.1 GM/dL (10.7-15.3); MCH 28.1 pg (25.7-33.7); MCHC 31.9 g/dl (32.0-36.0); MEAN PLT VOLUME 8.6 fl (7.5-11.1); PLATELET COUNT 286 10^3/uL (134-434); RBC 3.94 M/mm3 (3.60-5.2); WHITE BLOOD COUNT 7.1 K/mm3 (4.0-10.0)
[2023-06-25] MEDS: ASCORBIC ACID 500 MG TABLET (FP) PO SCH (09:31)
[2023-06-25] MEDS: PANTOPRAZOLE 40 MG TABLET PO SCH (09:32)
[2023-06-25] MEDS: CHOLECALCIFEROL (VIT D3) 1,000 UNIT (25 MCG) TABLET PO SCH (09:32)
[2023-06-25] MEDS: FUROSEMIDE 40 MG/4 ML INJECTABLE VIAL IVPUSH SCH (09:32)
[2023-06-25] MEDS: metoPROLOL SUCCINATE 25 MG TAB.SR.24H (FP) PO SCH (09:32)
[2023-06-25] MEDS: SACUBITRIL/VALSARTAN 24 MG-26 MG TABLET PO SCH ×2 (09:32→21:24)
[2023-06-25] MEDS: ASPIRIN 81 MG CHEWABLE TABLETS PO SCH (09:32)
[2023-06-25] MEDS: HEPARIN NA (PORCINE) 5,000 UNITS/ML 1ML VIAL SQ SCH ×2 (09:32→21:24)
[2023-06-25] MEDS: SPIRONOLACTONE 25 MG TABLET PO SCH (09:32)
[2023-06-26] MEDS: POLYETHYLENE GLYCOL (HEALTHYLAX) 3350 17 GM PACKET PO SCH ×3 (06:42→21:44)
[2023-06-26] MEDS: FUROSEMIDE 40 MG/4 ML INJECTABLE VIAL IVPUSH SCH (10:28)
[2023-06-26] MEDS: PANTOPRAZOLE 40 MG TABLET PO SCH (10:28)
[2023-06-26] MEDS: ASPIRIN 81 MG CHEWABLE TABLETS PO SCH (10:28)
[2023-06-26] MEDS: CHOLECALCIFEROL (VIT D3) 1,000 UNIT (25 MCG) TABLET PO SCH (10:28)
[2023-06-26] MEDS: ASCORBIC ACID 500 MG TABLET (FP) PO SCH (10:28)
[2023-06-26] MEDS: SPIRONOLACTONE 25 MG TABLET PO SCH (10:28)
[2023-06-26] MEDS: metoPROLOL SUCCINATE 25 MG TAB.SR.24H (FP) PO SCH (10:29)
[2023-06-26] MEDS: HEPARIN NA (PORCINE) 5,000 UNITS/ML 1ML VIAL SQ SCH ×2 (10:29→21:43)
[2023-06-26] MEDS: SACUBITRIL/VALSARTAN 24 MG-26 MG TABLET PO SCH ×2 (10:29→21:42)
[2023-06-27] MEDS: POLYETHYLENE GLYCOL (HEALTHYLAX) 3350 17 GM PACKET PO SCH (05:43)
[2023-06-27 08:50] VITALS: BP 99/50; PULSE 82; RESP 16; TEMP 98.1
== END 2023-06-27 09:18 | disposition short-term general hospital (02) | DRG 280 ==
LOC: JER 23:21 → JERBED 06-17 00:58 → J4W 06-17 04:26
PROVIDERS: ADMIT Internal Medicine; ATTEND Family Medicine
DX: I21.4 Non-ST elevation (NSTEMI) myocardial infarction (principal); I50.23 Acute on chronic systolic (congestive) heart failure; J96.21 Acute and chronic respiratory failure with hypoxia; I13.0 Hypertensive heart and chronic kidney disease with heart failure and stage 1 through stage 4 chronic kidney disease, or unspecified chronic kidney disease; J98.11 Atelectasis; I42.8 Other cardiomyopathies; E11.22 Type 2 diabetes mellitus with diabetic chronic kidney disease; N18.9 Chronic kidney disease, unspecified; E78.5 Hyperlipidemia, unspecified; I25.119 Atherosclerotic heart disease of native coronary artery with unspecified angina pectoris; K59.09 Other constipation; I25.2 Old myocardial infarction; R94.5 Abnormal results of liver function studies; J44.9 Chronic obstructive pulmonary disease, unspecified; I44.7 Left bundle-branch block, unspecified; Z95.5 Presence of coronary angioplasty implant and graft
CPT/HCPCS: 0241U-QW; 36415; 36600; 71045-TC-FY; 74176-TC; 74181-TC; 76705-TC; 80053; 81003; 82550; 82553; 82728; 82803; 82962; 82977; 83540; 83550; 83735; 83880; 84100; 84484; 85025; 85027; 85610; 85730; 86704; 86708; 86803; 87040; 87340; 87517; 87899; 93005; 93010; 93306-TC; 94640; 94660; 97116-GP; 97162-GP; 99285-25; J1644